=== PATIENT | male | born 1995 | race Caucasian/White ===

== ENCOUNTER 2023-03-05 07:34 | Outpatient (OUT) | payer MEDICAID, SELFPAY ==
[2023-03-05 08:12] LABS: Basophils Percent Auto 0.2 % (0.2-2.0); Eosinophils Absolute Auto 0.1 10^3/uL (0.0-0.7); Eosinophils Percent Auto 1.3 % (0.9-7.0); Hematocrit 44.6 % (42.0-54.0); Hemoglobin 14.9 g/dL (14.0-18.0); Immature Granulocytes Abs Auto 0.01 10^3/uL (0.00-0.03); Immature Granulocytes Pct Auto 0.2 % (0.0-0.5); Lymphocytes Absolute Auto 2.1 10^3/uL (1.2-3.8); Lymphocytes Percent Auto 42.7 % (20.5-60.0); Mean Corpuscular HGB Conc 33.4 g/dL (29.9-35.2); Mean Corpuscular Hemoglobin 29.5 pg (25.9-34.0); Mean Corpuscular Volume 88.3 fL (80.0-94.0); Mean Platelet Volume 9.9 fL (9.5-13.5); Monocytes Absolute Auto 0.6 10^3/uL (0.3-0.8); Monocytes Percent Auto 12.7 % (1.7-12.0); Neutrophils Absolute Auto 2.1 10^3/uL (1.4-6.5); Neutrophils Percent Auto 42.9 % (43.0-75.0); Platelet Count 198 10^3/uL (150-450); Red Blood Count 5.05 10^6/uL (4.70-6.10); Red Cell Distribution Width 13.2 % (11.0-15.0); White Blood Count 4.8 10^3/uL (4.0-11.0)
[2023-03-05 08:41] LABS: Alanine Aminotransferase 25 U/L (16-63); Albumin Level 3.9 g/dL (3.4-5.0); Alkaline Phosphatase 66 U/L (46-116); Anion Gap 7.9; Aspartate Amino Transferase 21 U/L (15-37); BUN Creatinine Ratio 9.5; Bilirubin Total 0.4 mg/dL (0.2-1.0); Calcium 9.3 mg/dL (8.5-10.1); Carbon Dioxide 32.1 mmol/L (21.0-32.0); Chloride 95 mmol/L (98-107); Estimated GFR (African America >60 (>=60); Estimated GFR (Non-African Ame >60 (>=60); Free T3 2.22 pg/mL (2.18-3.98); Globulin 3.9 g/dL; Glucose 93 mg/dL (74-106); Sodium 130 mmol/L (136-145); Thyroid Stimulating Hormone 2.056 uIU/mL (0.358-3.740); Total Protein 7.8 g/dL (6.4-8.2)
[2023-03-05 08:52] LABS: Free T4 0.79 ng/dL (0.76-1.46)
== END 2023-03-05 07:35 | disposition home or self-care (01) ==
LOC: LAB 07:38
PROVIDERS: PCP Family Medicine; Visit Provider Family Medicine
DX: Z79.899 Other long term (current) drug therapy (principal)
CPT/HCPCS: 36415; 80053; 84439; 84443; 84481; 85025

== ENCOUNTER 2024-02-05 06:30 | Outpatient (OUT) | payer MEDICAID, SELFPAY ==
[2024-02-05 06:54] LABS: Basophils Percent Auto 0.2 % (0.2-2.0); Eosinophils Percent Auto 0.8 % (0.9-7.0); Hemoglobin 15.5 g/dL (14.0-18.0); Immature Granulocytes Abs Auto 0.01 10^3/uL (0.00-0.03); Immature Granulocytes Pct Auto 0.2 % (0.0-0.5); Lymphocytes Percent Auto 38.6 % (20.5-60.0); Mean Corpuscular HGB Conc 32.3 g/dL (29.9-35.2); Mean Corpuscular Hemoglobin 29.3 pg (25.9-34.0); Mean Corpuscular Volume 90.7 fL (80.0-94.0); Mean Platelet Volume 10.8 fL (9.5-13.5); Monocytes Absolute Auto 0.5 10^3/uL (0.3-0.8); Monocytes Percent Auto 10.2 % (1.7-12.0); Neutrophils Absolute Auto 2.6 10^3/uL (1.4-6.5); Platelet Count 184 10^3/uL (150-450); Red Blood Count 5.29 10^6/uL (4.70-6.10); Red Cell Distribution Width 12.9 % (11.0-15.0); White Blood Count 5.2 10^3/uL (4.0-11.0)
[2024-02-05 07:39] LABS: Alanine Aminotransferase 32 U/L (16-63); Albumin Globulin Ratio 0.9; Albumin Level 3.8 g/dL (3.4-5.0); Alkaline Phosphatase 76 U/L (46-116); Aspartate Amino Transferase 36 U/L (15-37); Bilirubin Total 0.6 mg/dL (0.2-1.0); Calcium 9.5 mg/dL (8.5-10.1); Chloride 98 mmol/L (98-107); Estimated GFR (African America >60 (>=60); Estimated GFR (Non-African Ame >60 (>=60); Globulin 4.4 g/dL; Glucose 90 mg/dL (74-106); Sodium 134 mmol/L (136-145); Total Protein 8.2 g/dL (6.4-8.2)
== END 2024-02-05 06:31 | disposition home or self-care (01) ==
LOC: LAB 06:30
PROVIDERS: PCP Family Medicine; Visit Provider Family Medicine
DX: Z79.899 Other long term (current) drug therapy (principal)
CPT/HCPCS: 36415; 80053; 85025

== ENCOUNTER 2024-12-07 18:00 | Emergency (ER) | payer MEDICAID, SELFPAY ==
[2024-12-07 18:05] VITALS: BP 150/102; PULSE 88; TEMP 37; O2SAT 100; BMI 27.4
[2024-12-07 18:36] VITALS: BP 132/76; PULSE 76; O2SAT 95
--- NOTE | 2024-12-07 18:37 | ED_ITS ---
HPI HPI - General Adult General Chief complaint: Upper Respiratory Infection Stated complaint: CHOKED WHILE EATING DINNER Time Seen by Provider: 12/07/24 18:08 Source: EMR Mode of arrival: walk-in Limitations: language barrier History of Present Illness HPI narrative: 29-year-old male was brought to the emergency room for evaluation with caregiver. Patient subsides at the [facility]. patient is mostly nonverbal but will give short one answer responses to caregivers. Squad was called after he had a choking episode and Heimlich maneuver was performed 3 times. Patient did have large emesis and was able to expel the food. Caregivers were concerned because patient had stridorous respirations initially when the choking episode was occurring. Patient refused to get in the ambulance so caregivers brought him here by private car. Patient's vital signs are stable he is no longer choking when he arrives. Upon arrival no distress. No wheezing. Related Data Home Medications ?Medication ?Instructions ?Recorded ?Confirmed atomoxetine 40 mg capsule 40 mg PO BID 12/07/24 bacitracin zinc 500 unit/gram 1 applic topical BID 11/2812/07/24 topical ointment baclofen 10 mg tablet 10 mg PO QID 12/07/24 cetirizine 10 mg tablet 10 mg PO DAILY 12/07/2411/28 clonidine HCl 0.1 mg tablet 0.1 mg PO BID 12/07/2411/28 furosemide 20 mg tablet 20 mg PO DAILY 12/07/2411/28 levetiracetam 500 mg tablet 500 mg PO TID 12/07/2411/28 lisdexamfetamine 70 mg capsule 70 mg PO DAILY 12/07/24 12/07/24 (Vyvanse) trazodone 50 mg tablet 25 mg PO TID 12/07/24 trihexyphenidyl 5 mg tablet 5 mg PO TID 12/07/2412/07 Allergies Allergy/AdvReac Type Severity Reaction Status Date / Time No Known Drug Allergies Allergy Verified 12/07/24 18:05 Review of Systems ROS Status of ROS 10 or more systems reviewed and unremark able except as noted in history and below [facility] Medical History (Updated 12/07/24 @ 18:37 by Jessica Carias) Cervical dystonia ?G24.3 - Spasmodic torticollis (ICD-10) Hyperopia with astigmatism ?H52.00 - Hypermetropia, unspecified eye (ICD-10) ?H52.209 - Unspecified astigmatism, unspecified eye (ICD-10) Venous insufficiency ?I87.2 - Venous insufficiency (chronic) (peripheral) (ICD-10) Seasonal allergies ?J30.2 - Other seasonal allergic rhinitis (ICD-10) Insomnia ?G47.00 - Insomnia, unspecified (ICD-10) Dysphagia ?R13.10 - Dysphagia, unspecified (ICD-10) Scoliosis ?M41.9 - Scoliosis, unspecified (ICD-10) Eczema ?L30.9 - Dermatitis, unspecified (ICD-10) Autism ?F84.0 - Autistic disorder (ICD-10) Onychomycosis ?B35.1 - Tinea unguium (ICD-10) Developmental delay, severe ?R62.50 - Unspecified lack of expected normal physiological development in childhood (ICD-10) Attention deficit hyperactivity disorder ?F90.9 - Attention-deficit hyperactivity disorder, unspecified type (ICD-10) Severe intellectual disability ?F72 - Severe intellectual disabilities (ICD-10) Exam Constitutional Vital Signs, click to edit/add: Last Vital Signs Temp 98.6 F 12/07/24 18:05 Pulse 76 12/07/24 18:36 Resp 20 12/07/24 18:36 BP 132/76 12/07/24 18:36 Pulse Ox 95 12/07/24 18:36 O2 Del Method Room Air 12/07/24 18:36 Course Vital Signs Vital signs: Vital Signs Temperature 98.6 F 12/07/24 18:05 Pulse Rate 88 12/07/24 18:05 Respiratory Rate 20 12/07/24 18:05 Blood Pressure 150/102 H 12/07/24 18:05 Pulse Oximetry 100 12/07/24 18:05 Oxygen Delivery Method Room Air 12/07/24 18:05 Temperature 98.6 F 12/07/24 18:05 Pulse Rate 76 12/07/24 18:36 Respiratory Rate 20 12/07/24 18:36 Blood Pressure 132/76 12/07/24 18:36 Pulse Oximetry 95 12/07/24 18:36 Oxygen Delivery Method Room Air 12/07/24 18:36 Medical Decision Making [facility] Narrative Medical decision making narrative: 29-year-old male was brought to the emergency room for evaluation with car shreya. Patient subsides at the [facility]. Squad was called after he had a choking episode and Heimlich maneuver was performed 3 times. Patient did have large emesis and was able to expel the food. Caregivers were concerned because patient had stridorous respirations initially when the choking episode was occurring. Patient refused to get in the ambulance so caregivers brought him here by private car. Patient's vital signs are stable he is no longer choking when he arrives. Upon arrival no distress. No wheezing. X-ray was performed. Patient is stable and able to be discharged to home blood pressure vital signs are all within normal limits. Patient is acting appropriate per caregiver smiling. Primary care physician. Reasons return to the emergency room were discussed history of having difficulty swallowing and is on a mechanical diet. He was eating tater tots and chicken per caregiver. He did vomit up all the food he was eating. Differential Diagnosis Differential Diagnosis: choking, aspiration Medical Records Medical records reviewed: Yes I reviewed the patient's medical records Lab Data Lab results reviewed: Yes I reviewed the patient's lab results Discharge Plan Discharge Chief Complaint: Upper Respiratory Infection Clinical Impression: Choking episode occurring during daytime Patient Disposition: Home, Self-Care Time of Disposition Decision: 18:35 Condition: Good Prescriptions / Home Meds: No Action atomoxetine 40 mg capsule 40 mg PO BID bacitracin zinc 500 unit/gram ointment 1 applic TOPICAL BID baclofen 10 mg tablet 10 mg PO QID cetirizine 10 mg tablet 10 mg PO DAILY clonidine HCl 0.1 mg tablet 0.1 mg PO BID trihexyphenidyl 5 mg tablet 5 mg PO TID lisdexamfetamine [Vyvanse] 70 mg capsule 70 mg PO DAILY levetiracetam 500 mg tablet 500 mg PO TID furosemide 20 mg tablet 20 mg PO DAILY trazodone 50 mg tablet 25 mg PO TID Print Language: Eritrean Instructions: Foreign Body Ingestion in Children (ED) Additional Instructions: patient appears well and back to baseline per caregiver, instructions are same for adult and child choking. Referrals: JOSE FLORES DO [Primary Care Provider, Family Practice] - 1 week
== END 2024-12-07 18:43 | disposition home or self-care (01) ==
PROVIDERS: Emergency Provider Emergency Medicine; PCP Family Medicine
DX: T17.928A Food in respiratory tract, part unspecified causing other injury, initial encounter (principal); W44.F3XA Food entering into or through a natural orifice, initial encounter
CPT/HCPCS: 71045; 99283

== ENCOUNTER 2025-01-20 06:52 | Outpatient (OUT) | payer MEDICAID, SELFPAY ==
--- OUTSIDE RECORDS SUMMARY | 2025-01-20 06:54 | XMS_ITS | Encounter Summary ---
Author Organization [facility] Address [address] [place], [place] [address] Care Team Providers Care Mammography Tech Name Role Phone Jossy Stewart MD Primary Care Provider [phone] PcpWendy APRN Primary Care Provider Unavailabl e Source Comments In the event this information is protected by the Federal Confidentiality of Alcohol and Drug AbusePatient Records regulations: The Federal rules restrict any use of the information to criminally investigate or prosecute any alcohol or drug abuse patient.[facility] Encounter Details Date Type Department Care Team (Latest Contact Info) Description 10/26/2003 Prob Sum Review Provider, Cc Social History Tobacco Use Types Packs/Day Years Used Date Smoking Tobacco: Never Assessed Sex and Gender Information Value Date Recorded Sex Assigned at Not on file Legal Sex Male 9:26 AM EST Gender Identity Not on file Sexual Orientation Not on file documented as of this encounter Plan of Treatment Not on file documented as of this encounter Visit Diagnoses Not on filedocumented in this encounter Care Teams Mammography Tech Relationship Specialty Start Date End Date Jossy Stewart MD [address] [id number] PCP - General 06/22/03 11/29/20 PcpWendy APRN PCP - General 11/30/20 07/05/21 documented as of this encounter
--- OUTSIDE RECORDS SUMMARY | 2025-01-20 06:54 | XMS_ITS | Clinical Summary ---
Author Organization [facility] Address [address] [place], [place] [address] Care Team Providers Care Railroad Track Mechanic Name Role Phone Unavailable Primary Care Provider Unavailabl e Allergies No known active allergies Medications cloNIDine 0.2 mg tablet Take 0.2 mg by mouth three times daily. Active divalproex ER 500 mg 24 hr tablet Take 500 mg by mouth three times daily. Active traZODONE 50 mg tablet Take 25 mg by mouth three times daily. Active leveTIRAcetam 500 mg tablet Take 500 mg by mouth three times daily. Active metoprolol tartrate, short acting, 25 mg tablet Take 25 mg by mouth twice daily. Active BACITRACIN ZINC TOPICAL Apply to affected area twice daily. Active lisdexamfetamin e (VYVANSE) 70 mg capsule Take 70 mg by mouth once daily. Active cloNIDine 0.1 mg tablet Take one tab in the morning and 1.5 tabs at noon. 01/06/2013 Active baclofen 10 mg tablet Take 3 tabs 4 times daily 270 tablet 5 01/06/2013 Active Cetirizine 10 mg cap Take one tab daily at bedtime 01/06/2013 Active Selenium Sulfide 2.25 % Sham Shampoo 3 times a week 0 01/06/2013 Active trihexyphenidyl 5 mg tablet 1.5 tab three times daily 180 tablet 3 01/06/2013 Active OLANZapine (ZYPREXA) 5 mg tablet Take 1.5 tablets by mouth daily at bedtime. 01/28/2014 Active aspirin 325 mg tablet Take 325 mg by mouth once daily. Active loratadine (CLARITIN) 10 mg tablet Take 10 mg by mouth once daily. Active sodium chloride (NASAL SPRAY, SODIUM CHLORIDE,) 0.65 % nasal spray Use 1 [place] in the nose as needed. Active Active Problems Problem Noted Date Diagnosed Date Dystonia Overview (12/12/2012): cervical and truncal PDD (pervasive developmental disorder) Dysphagia Scoliosis of thoracic spine ADHD (attention deficit hyperactivity disorder) Social History Tobacco Use Types Packs/Day Years Used Date Smoking Tobacco: Never Smokeless Tobacco: Never Alcohol Use Standard Drinks/Week Comments Not Asked 0 (1 standard drink = 0.6 oz pur e alcohol) Sex and Gender Information Value Date Recorded Sex Assigned at Not on file Legal Sex Male 9:26 AM EST Gender Identity Not on file Sexual Orientation Not on file Last Filed Vital Signs Vital Sign Reading Time Taken Comments Blood Pressure 144/85 04/30/2014 11:17 AM EDT Pulse 64 04/30/2014 11:17 AM EDT Temperature 36.6 C (97.9 F) 03/15/2013 8:45 PM EDT Respiratory Rate 20 03/15/2013 8:45 PM EDT Oxygen Saturation 85% 04/30/2014 11: 17 AM EDT Inhaled Oxygen Concentration - - Weight 77.9 kg (171 lb 11.8 oz) 03/15/2013 2:51 PM EDT Height 172.5 cm (5' 7.91 ) 12/11/2012 1 2:59 PM EDT Body Mass Index - - Plan of Treatment Health Maintenance Due Date Last Done Comments Anxiety Screening 2015 Depression Screening 2015 HIV Screening 2015 Hepatitis C Screening 2015 DTaP,Tdap,Td Vaccine (1 - Tdap) 2016 Hepatitis B Vaccine (1 of 3 - 19+ 3-dose series) 06/23 Covid-19 Vaccine (1 - season) 2024 Influenza Vaccine (Season Ended) 2025 Insurance [address] [place], [place] [id number] [place]ICAID [place]
--- OUTSIDE RECORDS SUMMARY | 2025-01-20 06:54 | XMS_ITS | Patient Health Record ---
Author Organization [facility] [place] Address [address] [place] [address] Care Team Providers Care Origination Specialist Name Role Phone None, Unknown or Primary Care Provider Unavailab le Reason For Referral No Information Medications Medication SIG (Take, Route, Frequency, Duration) Notes Start Date End Date Status Vyvanse 10 MG 1 capsule in the mor radha Orally Once a day for 30 days 04/11/2023 Active Vyvanse 60 MG 1 capsule in the mor radha Orally Once a day for 30 days 04/11/2023 Active Vyvanse 70 MG 1 capsule in the mor radha Orally Once a day for 30 days 08/10/2023 Active Problems Problem Type SNOMED Code ICD Code Onset Dates Problem Status W/U Status Risk Notes Problem [id number] Severe intellectual disabilities (F72) Active confirmed Problem 24146831 Autistic disorde r (F84.0) Active confirmed Problem 782604293 Attention-defici t hyperactivity disorder, unspecified type (F90.9) Active confirmed Problem 85913493 Dysphagia, unspecified (R13.10) Active confirmed Problem 206085266 Attention defici t hyperactivity disorder (ADHD), unspecified ADHD type (F90.9) Active confirmed Problem 217297729 Scoliosis of thoracic spine, unspecified scoliosis type (M41.9) Active confirmed Problem 83630664 Severe intellectual disability (F72) Active confirmed Plan Of Treatment No Information Insurance Providers Payer Name Payer Address Payer Phone Subscriber Number Group Number Insured Name Patient Relationship to Insured Coverage Start Date Coverage End Date MEDICAID [place] ONLY [address] OFFICE [facility] [place] [place] [id number] Heladio Hutchinson Self - patient is the insured 2
--- OUTSIDE RECORDS SUMMARY | 2025-01-20 06:54 | XMS_ITS | Clinical Summary ---
Author Organization [facility] Address [address] [id number] Care Team Providers Care Control Systems Engineer Name Role Phone Unavailable Primary Care Provider Unavailabl e Social History Tobacco Use Types Packs/Day Years Used Date Smoking Tobacco: Never Assessed Sex and Gender Information Value Date Recorded Sex Assigned at Not on file Legal Sex Male 9:31 PM EST Gender Identity Not on file Sexual Orientation Not on file Plan of Treatment Not on file
--- OUTSIDE RECORDS SUMMARY | 2025-01-20 06:55 | XMS_ITS | CCD ---
Author Organization [facility] Care Team Providers Care Seasonal Delivery Driver Name Role Phone Hilda Donya Siddiquidija Unavailable Unavailable Hilda, Donya Diana Unavailable Unavailable Unavailable Primary Care Provider Unavailabl e Unavailable Primary Care Provider Unavailabl e FLORES, DR MAYUR Reid Attending Unavailable YONI, DR RADHA Templeton Consulting Unavailable FLORES, DR MAYUR Reid Primary Care Unavailable FLORES, DR MAYUR Reid Admitting Unavailable FLORES, DR MAYUR Reid Consulting Unavailable REINECK, DR SANDRO Rudd Attending Unavailabl e DAVE WRIGHT Consulting Unavailable REINECK, DR SANDRO Rudd Admitting Unavailabl e FLORES, DR MAYUR Reid Primary Care Unavailable MARGAUX RIVAS Consulting Unavailable FLORES, DR MAYUR Reid Admitting Unavailable FLORES, DR MAYUR Reid Attending Unavailable FLORES, DR MAYUR Reid Consulting Unavailable FLORES, DR MAYUR Reid Primary Care Unavailable FLORESMAYUR Primary Care Physician FLORES PROVIDER, MAYUR Admitting Unavail able FLORES PROVIDER, MAYUR Attending Unavail able FLORES PROVIDER, MAYUR Referring Unavail able Unavailable Primary Care Provider UnavailTonie Philippe Attending Unavailable Tonie Cannon Admitting Unavailable NO FAMILY, PHYSICIAN Primary Care Unavailable GARY LEWIS Attending Unavailable PROVIDER, UNKNOWN Admitting Unavailable PROVIDER, UNKNOWN Admitting Unavailable PROVIDER, UNKNOWN Attending Unavailable GARY LEWIS Admitting Unavailable GARY LEWIS Attending Unavailable Medications Current Medications Medication Drug Class(es) Dates Sig (Normalized) Sig (Original) acetaminophen 325 mg oral tablet (13 sources) Start: 12-30-2021 End: 12-30-2021 acetaminophen (TYLENOL) tablet atomoxetine 40 mg oral capsule (12 sources) Norepinephrine Reuptake Inhibitor take 1 capsule by mouth twice daily atomoxetine (STRATTERA) 40 MG capsule Take 40 mg by mouth 2 times daily. Active bacitracin 0.5 unt/mg topical ointment (12 sources) bacitracin 500 UNIT/GM OINT ointment Indications: nares Apply externally 2 times daily Indications: nares. Active bacitracin 500 U NIT/GM OINT ointment Indications: nares Apply externally 2 times daily Indications: nares. 0 Active baclofen 10 mg oral tablet (12 sources) gamma-Aminobutyric Acid-ergic Agonist take 1 tablet by mouth four times daily baclofen (LIORESAL) 10 MG tablet Take 10 mg by mouth 4 times daily. Active calcium chloride 0.0014 meq/ml / potassium chloride 0.004 meq/ml / sodium chloride 0.103 meq/ml / sodium lactate 0.028 meq/ml injectable solution (1 source) Start: 2021 lactated ringers iv infusion cetirizine hydrochloride 10 mg oral tablet (12 sources) Histamine-1 Receptor Antagonist take 1 tablet by mouth once daily cetirizine (ZYRTEC) 10 MG tablet Take 10 mg by mouth daily. Active chlorhexidine gluconate 1.2 mg/ml mouthwash (3 sources) Start: 2023 take 15 mL by mouth twice daily chlorhexidine (Peridex) 0.12 % oral solution Take 15 mL by mouth 2 times daily. 473 mL 05/19/2024 Active cloNIDine hydrochloride 0.2 mg oral tablet (12 sources) Central alpha-2 Adrenergic Agonist take 1 tablet by mouth three times daily clonidine (CATAPRES) 0.2 MG tablet Take 0.2 mg by mouth 3 times daily. Active desonide 0.5 mg/ml topical cream (12 sources) Corticosteroid desonide (DESOWE N) 0.05 % cream Apply topically 2 times daily. Apply thin layer to affected area. Active 1 ml HYDROmorphone hydrochloride 0.2 mg/ml prefilled syringe (1 source) Opioid Agonist Start: 2023 End: 2023 0.2 mg, Intravenous Push, PACU EVERY 15 MIN PRN X 4 DOSES, 4 doses, Starting on Sun05/19/24 at 0712, Until Sun05/21/24 at 0711, Moderate Pain (pain score 4,5,6), PACU Now levETIRAcetam 500 mg oral tablet (12 sources) take 1 tablet by mouth three times daily levETIRAcetam (KEPPRA) 500 MG tablet Take 500 mg by mouth 3 times daily. Active lisdexamfetamine dimesylate 70 mg oral capsule (12 sources) Central Nervous System Stimulant take 1 capsule by mouth once daily lisdexamfetamine (VYVANSE) 70 MG capsule Take 70 mg by mouth daily. Active loratadine 10 mg oral tablet (12 sources) take 1 tablet by mouth once daily as needed loratadine (CLARITIN) 10 MG tablet Take 10 mg by mouth daily as needed. Active metoprolol tartrate 100 mg oral tablet (12 sources) beta-Adrenergic Manan take 1 tablet by mouth three times daily metoprolol (LOPRESSOR) 100 MG tablet Take 100 mg by mouth 3 times daily. Active OLANZapine 5 mg oral tablet (12 sources) Atypical Antipsychotic take 0.5 tablet by mouth at bedtime olanzapine (ZYPREXA) 5 MG tablet Take 5 mg by mouth at bedtime. Takes one and a half tabs at hs Active 2 ml ondansetron 2 mg/ml injection (1 source) Serotonin-3 Receptor Antagonist Start: 2021 End: 2021 ondansetron (ZOFRAN) 4 MG/2ML injection oxyCODONE hydrochloride 1 mg/ml oral solution (1 source) Opioid Agonist Start: 2023 End: 2023 take 5 mg by mouth once as needed for pain 5 mg, Oral, PACU ONCE PRN, Starting on Sun05/19/24 at 0712, Until Sun05/19/24 at 1311, Mild Pain (pain score 1,2,3), PACU Now traZODone hydrochloride 50 mg oral tablet (12 sources) Serotonin Reuptake Inhibitor take 0.5 tablet by mouth three times daily trazodone 50 MG tablet Take 50 mg by mouth 3 times daily. Takes half tablet tid Active trihexyphenidyl hydrochloride 5 mg oral tablet (12 sources) Trihexyphenidyl HCl 5 MG TABS Take by mouth 3 times daily. Takes 1 1/2 tab tid Active divalproex sodium 500 mg delayed release oral tablet (12 sources) Mood Stabilizer, Anti-epileptic Agent take 1 tablet by mouth three times daily divalproex (DEPAKOTE) 500 MG enteric coated tablet Take 500 mg by mouth 3 times daily. Active Completed/Discontinued Medications Medication Drug Class(es) Dates Sig (Normalized) Sig (Original) 1 ml naloxone hydrochloride 0.4 mg/ml injection (2 sources) Opioid Antagonist Start: 05-19-2024 0.4 mg, Intravenous Push, PRN, Starting on Sun05/19/24 at 0712, Until Discontinued, Respiratory Rate Less Than 8 for adults and less than 12 for Peds or for suspected overdose, PACU Now Start: 12-30-2021 naloxone (NARC AN) 0.4 MG/ML injection 20 ml sodium chloride 9 mg/m l injection (2 sources) Start: 05-19-2024 3 mL, Intraven ous Push, PRN, Starting on Sun05/19/24 at 0712, Until Discontinued, For medication administration and blood draw, PACU Now Start: 12-30-2021 sodium chlorid e 0.9 % (PF) 0.9 % injection Problems Active Problems Problem Classification Problem Date Documented Date Episodic/Chronic Attention-deficit, conduct, and disruptive behavior disorders (11 sources) Attention deficit hyperactivity disorder; Translations: [Attention-deficit hyperactivity disorder, unspecified type] Onset: 09-04-2019 12-30-2021 Chronic Developmental disorders (12 sources) Severe intellectual disability; Translations: [Severe intellectual disabilities] Onset: 09-04-2019 12-30-2021 Chronic Disorders usually diagnosed in infancy, childhood, or adolescence (11 sources) Autism spectrum disorder; Translations: [Pervasive developmental disorder, unspecified] Onset: 12-30-2021 12-30-2021 Chronic E Codes: Natural/environment (1 source) Exposure to other specified factors, initial encounter; Translations: [EXPOSURE OTHER SPEC FACTORS INITIAL] Onset: 07-19-2022 Episodic Heart valve disorders (1 source) Rheumatic tricuspid insufficiency; Translations: [RHEUMATIC TRICUSPID INSUFFICIENCY] Onset: 04-07-2022 Chronic Other acquired deformities (11 sources) Scoliosis of thoracic spine; Translations: [Scoliosis, unspecified] Onset: 09-04-2019 12-30-2021 Chronic Other hereditary and degenerative nervous system conditions (11 sources) Dystonia; Translations: [Dystonia, unspecified] Onset: 12-30-2021 12-30-2021 Chronic Other injuries and conditions due to external causes (4 sources) Food in respiratory tract, part unspecified causing other injury, initial encounter; Translations: [FOOD RESP TRACT PRT UNS OTH INJ INT] Onset: 07-16-2022 Episodic Other nutritional; endocrine; and metabolic disorders (1 source) Body mass index 30+ - obesity; Translations: [Body mass index (BMI) 31.0-31.9, adult] 05-08-2024 Chronic Other nutritional; endocrine; and metabolic disorders (1 source) Body mass index (BMI) 31.0-31.9, adult; Translations: [Body mass index (BMI) 31.0-31.9, adult] Onset: 05-06-2024 Chronic Other upper respiratory disease (11 sources) Allergic rhinitis; Translations: [Allergic rhinitis, unspecified] Onset: 09-04-2019 12-30-2021 Chronic Unclassified (1 source) Non-bullous impetigo; Translations: [Non-bullous impetigo] Onset: 08-15-2023 Past or Other Problems Problem Classification Problem Date Documented Da te Episodic/Chronic Disorders of teeth and jaw (20 sources) Dental caries; Translations: [Dental caries, unspecified] Onset: 08-16-2017 Resolved: 05-19-2024 08-16-2017 Episodic Other diseases of veins and lymphatics (4 sources) Venous insufficiency (chronic) (peripheral); Translations: [VENOUS INSUFF CHRONIC PERIPHERAL] Onset: 04-06-2022 Episodic Other gastrointestinal disorders (11 sources) Dysphagia; Translations: [Dysphagia, unspecified] Onset: 12-30-2021 12-30-2021 Episodic Residual codes; unclassified (11 sources) Insomnia; Translations: [Insomnia, unspecified] Onset: 09-04-2019 12-30-2021 Episodic Results Test Name Value Interpretation Reference Range Facility Anesthesia Postprocedure Michelle levinetl 05-19-2024 Electronic Repair Troubleshooter Authentication Interface Message Text Anesthesia Postoperative Assessment: Vital Signs (most recent): BP 156/95 Pulse 67 Temp 36.3 ???C (97.4 ???F) (Temporal) Resp 19 Ht 5' 9 (1.753 m) Wt 210 lb (95.3 kg) SpO2 99% BMI 31.01 kg/m??? Anesthesia Post Evaluation Level of consciousness: arousable Pain management: adequate Hydration status: normal PONV:No nausea/vomiting reported Respiratory status: Patient breathing comfortably on room air Cardiovascular status: stable ANESTHESIA NOTABLE EVENTS: No notable events documented. Normal [facility] Anesthesia Transfer Of Jaqueline vasquez 05-19-2024 Electronic Repair Troubleshooter Authentication Interface Message Text Patient taken to PACU. Patient was awake, comfortable, and stable on arrival. Anesthesia Transfer of Care Note Past Medical History: Past Medical History: Diagnosis Date ADHD social science manager Group facility assessment Autism (HCC) with aggression; social science manager Group facility assessment Dysmorphic features social science manager Group facility assessment Dysphagia social science manager Group facility assessment Dystonia Cervical and Truncal; social science manager Group facility assessment Eczema social science manager Group facility assessment Hyperopia of both eyes with astigmatism social science manager Group facility assessment Insomnia social science manager Group facility assessment Onychomycosis social science manager Group facility assessment Pervasive developmental disorder (HCC) social science manager Group facility assessment Scoliosis Thoracic spine, social science manager Group facility assessment Seasonal allergies social science manager Group facility assessment Severe intellectual disability Sleep Apnea/Positive STOP-BANG: No Problem List: Patient Active Problem List: Dental decay [K02.9] ADHD (attention deficit hyperactivity disorder) [F90.9] Allergic rhinitis [J30.9] Dysphagia [R13.10] Dystonia [G24.9] Insomnia [G47.00] Pervasive developmental disorder (HCC) [F84.9] Scoliosis of thoracic spine [M41.9] Severe intellectual disability [F72] Past Surgical History: Review of patient's past surgical history indicates: DENTAL RESTORATIONS (08/20/2017) Procedure: DENTAL RESTORATIONS; Surgeon: Jadyn Kearns DDS; Location: [facility] [place]; Service: Dental EXTRACTION, TOOTH (08/20/2017) Procedure: EXTRACTION, TOOTH; Surgeon: Jadyn Kearns DDS; Location: [facility] [place]; Service: Dental DENTAL RESTORATIONS (01/17/2019) Procedure: DENTAL RESTORATIONS, full mouth x-rays, cleaning; Surgeon: Gary Lewis DDS; Location: [facility]; Service: Dental DENTAL RESTORATIONS (12/30/2021) Procedure: DENTAL RESTORATIONS; Surgeon: Tee De La Rosa DDS; Location: [facility] [place]; Service: Dental Allergies: Patient has no known allergies. Basic Operating Room Facts: Surgeon(s): Gary Lewis DDS Anesthesiologist: Bridget James MD INSULATION HELPER: Todd Bertrand APRN-SARAH Iron Miner: Jacek Arredondo DO DENTAL EXAM UNDER ANESTHESIA, XRAYS AND PROPHY (Bilateral: Mouth) Intraoperative Events: No acute event ASA: 2 EBL: Not documented Urine Not documented Lactated Ringers and NaCl 0.9%: Fluid Totals (Filter: LR and NaCl 0.9% Medications Shown) Medication Calculated Total Lactated Ringers 200 mL / 1 bag Cell Saver: Not documented Blood Volume Values: Blood Products None MTP Blood: MTP PRBC: Not documented MTP FFP: Not documented MTP PLT: Not documented MTP Cryo: Not documented MTP Whole Blood: Not documented Current Vasoactive Medications: {Vasoactive Medications: None Lines, Drains, Airways Peripheral IV Access: 05/19/24 0710 Left Forearm (Active) Airway Insertion Details [REMOVED] Advanced Airway: ETT, Nasal #6.5 (Removed) 05/19/24 0800 Pre-Oxygenation/ Induction: Mask Rapid Sequence Induction?: Mask Ventilation: Easy Blade Type: Mac Blade Size: 3.5 Visualization: Grade 1 Airway Type: ETT, Nasal Airway Size: #6.5 Post Insertion Assessment: Confirmation: Equal bilateral breath sounds, CO2 confirmed # Attempts >1: Special Equipment: Leoncio forceps Present on Admission?: Previously Removed / Not Present: Removal Reason: Not Removed at Discharge: Removed 05/19/24 0840 All non-working IVs have been removed: N/A Laboratory Data: CBC (last 3 years, up to 8 values) No lab values to display. BMP (last 3 years, up to 8 values) No lab values to display. Basic Metabolic Panel No lab values to display. No results found for: INR No result for BNP LFT's (last 3 years, up to 8 values) No lab values to display. Arterial Blood Gases None Hand off Completed: Yes 1. The patient was identified. 2. Pertinent medical history was relayed. 3. A brief discussion was had about any pertinent surgical/ procedural issues. 4. Intraoperative/ anesthetic management issue and concerns were discussed. 5. Plans for the early post-operative period relayed. 6. An opportunity for questions and acknowledgment of understanding of the report was received. DO Maddie Fuentes [employer] [facility] Blood Attestationon 05-19-20 Electronic Repair Troubleshooter Authentication Interface Message Text Blood Attestation: ATTESTATION OF INFORMED CONSENT FOR BLOOD: The transfusion of blood and/or blood components were discussed with the patient and/or legal direct sales representative. The risks, benefits and alternatives were reviewed. Questions regarding blood transfusions were answered. The patient /or the patient's legal direct sales representative agree with the plan for transfusion of blood and/or blood components. Normal [facility] [employer] [facility] Brief Operative Noteon 05-19 Electronic Repair Troubleshooter Authentication Interface Message Text Brief Operative Note PHE OR 3 Shilpa Valle 28 year old male Surgical Contact Serial Number: [id number] Preoperative Diagnosis: ADHD (attention deficit hyperactivity disorder) [F90.9] Allergic rhinitis [J30.9] Dysphagia [R13.10] Dystonia [G24.9] Insomnia [G47.00] Pervasive developmental disorder (HCC) [F84.9] Scoliosis of thoracic spine [M41.9] Severe intellectual disability [F72] Caries [K02.9] Postoperative Diagnosis: ADHD (attention deficit hyperactivity disorder) [F90.9] Allergic rhinitis [J30.9] Dysphagia [R13.10] Dystonia [G24.9] Insomnia [G47.00] Pervasive developmental disorder (HCC) [F84.9] Scoliosis of thoracic spine [M41.9] Severe intellectual disability [F72] Procedures: Full Dental X-Rays [99809] Full Dental Exam [13091] Full Dental Cleaning [50024] Surgeon(s): Surgeon(s): Gary Lewis DDS [place], yoris, DDS Staff: Animal Attendants And Trainers Nurse: Treva Merino Anesthesia: General Anesthesiologist: Bridget James MD Anesthesia Staff: Jacek Arredondo DO Specimen(s): * No specimens in log * Estimated Blood Loss: less than 5 cc Lines/Drains: * No LDAs found * Temporarily Retained Foreign Object: No Findings: Normal Complications: None Status at end of surgery: Stable Activity: weight bearing as tolerated Surgical wound class: No wound. Patient Class: Outpatient Surgery. Is this a patient scheduled as an outpatient that needs to be admitted as an inpatient? No Dr. Lewis was present in the OR for the critical portion of the procedure and procedure sign-out. Signed by Zain Funk DDS 05/19/2024 7:04 AM Normal [facility] [employer] [facility] OP Noteon 05-19-2024 Electronic Repair Troubleshooter Authentication Interface Message Text Operative Note PHE OR 3 Shilpa Harp 28 year old male Surgical Contact Serial Number: [id number] Preoperative Diagnosis: ADHD (attention deficit hyperactivity disorder) [F90.9] Allergic rhinitis [J30.9] Dysphagia [R13.10] Dystonia [G24.9] Insomnia [G47.00] Pervasive developmental disorder (HCC) [F84.9] Scoliosis of thoracic spine [M41.9] Severe intellectual disability [F72] Caries [K02.9] Postoperative Diagnosis: ADHD (attention deficit hyperactivity disorder) [F90.9] Allergic rhinitis [J30.9] Dysphagia [R13.10] Dystonia [G24.9] Insomnia [G47.00] Pervasive developmental disorder (HCC) [F84.9] Scoliosis of thoracic spine [M41.9] Severe intellectual disability [F72] Procedures: Full Dental X-Rays [15228] Full Dental Exam [49355] Full Dental Cleaning [55606] Surgeon: Debbie Vega DDS Holiday Detector Operator Surgeon: Zain Funk DDS Anesthesia: General- Nasal ETT Estimated Blood Loss: 5 cc IV Fluids: 200 cc Urine Output: Not measured. Findings: The patient was brought to the operating room and placed in the supine position on the operating room table. Following satisfactory induction of GA. The patient was intubated with a nasal endotracheal tube. He was then prepped and drapped in the usual sterile fashion for dental procedures. Full mouth series were then taken and an oral examination was completed. A moistened throat pack was then placed. Full mouth prophylaxis was then performed. The radiographs were examined by the attending and the resident and used in conjunction with th oral exam to formulate a treatment plan. The restorative aspect of the treatment plan included the following no restorations done The surgical aspect of the treatment plan included the following extraction. No extractions done. The remaining dentition was then polished with prophy paste. The oral cavity was irrigated and suctioned then the throat pack was removed. Fluoride treament was placed on the remaining dentition. The patient tolerated the procedure well was extubated in the operating room, and taken to the PACU in stable condition. Complications: None Status at end of surgery: Stable Medications: No outpatient medications have been marked as taking for the 05/19/24 encounter (Hospital Encounter). Dictated by: Zain Funk DDS: Dr. Lewis was present for the critical portions of the procedure. Zain Funk DDS 05/19/2024 7:07 AM Normal [facility] [employer] [facility] Progress Noteson 05-19-2024 Electronic Repair Troubleshooter Authentication Interface Message Text ----- Sunday, May 19, 2024 at 8:36:35 AM ----- ----- Provider: [id number] - Gary Amborse DDS -- Clinic: [facility] ----- [place] notes, pt is ready for tx. good OH, needed only cleaning. tooth 17 was partially covered by gum, healthy otherwise with no complaints. give the limited mouth opening, tooth was not extracted today, will be on watch. PHE OR 3 Shilpa Evangelina 28 year old male Surgical Contact Serial Number: [id number] Preoperative Diagnosis: ADHD (attention deficit hyperactivity disorder) [F90.9] Allergic rhinitis [J30.9] Dysphagia [R13.10] Dystonia [G24.9] Insomnia [G47.00] Pervasive developmental disorder (HCC) [F84.9] Scoliosis of thoracic spine [M41.9] Severe intellectual disability [F72] Caries [K02.9] Postoperative Diagnosis: ADHD (attention deficit hyperactivity disorder) [F90.9] Allergic rhinitis [J30.9] Dysphagia [R13.10] Dystonia [G24.9] Insomnia [G47.00] Pervasive developmental disorder (HCC) [F84.9] Scoliosis of thoracic spine [M41.9] Severe intellectual disability [F72] Procedures: Full Dental X-Rays [07202] Full Dental Exam [30154] Full Dental Cleaning [61383] Surgeon: Debbie Vega DDS Holiday Detector Operator Surgeon: Zain Funk DDS Anesthesia: General- Nasal ETT Estimated Blood Loss: 5 cc IV Fluids: 200 cc Urine Output: Not measured. Findings: The patient was brought to the operating room and placed in the supine position on the operating room table. Following satisfactory induction of GA. The patient was intubated with a nasal endotracheal tube. He was then prepped and drapped in the usual sterile fashion for dental procedures. Full mouth series were then taken and an oral examination was completed. A moistened throat pack was then placed. Full mouth prophylaxis was then performed. The radiographs were examined by the attending and the resident and used in conjunction with th oral exam to formulate a treatment plan. The restorative aspect of the treatment plan included the following no restorations done The surgical aspect of the treatment plan included the following extraction. No extractions done. The remaining dentition was then polished with prophy paste. The oral cavity was irrigated and suctioned then the throat pack was removed. Fluoride treament was placed on the remaining dentition. The patient tolerated the procedure well was extubated in the operating room, and taken to the PACU in stable condition. Complications: None Status at end of surgery: Stable Medications: Medications Taking No outpatient medications have been marked as taking for the 05/19/24 encounter (Hospital Encounter). Dictated by: Zain Funk DDS: Dr. Lewis was present for the critical portions of the procedure. Zain Funk DDS 05/19/2024 7:07 AM ----- Signed on Sunday, May 19, 2024 at 8:39:59 AM ----- ----- Provider: Carli Ambrose DDS -- Clinic: [facility] ----- Normal [employer] [facility] Telephone Encounteron 2023 Electronic Repair Troubleshooter Authentication Interface Message Text What is the need: Situation: Prescription Question Background: A nurse form [facility] called asking how long Pt should be using mouthwash. It only stated twice a day but not sure for how long. Recommendation: Please follow up with [facility] at [phone] Thanks! Cristobal Francois URGENT message sent in [employer] on 05/20/24 Normal [facility] [employer] [facility] Anesthesia Preprocedure Eval uationon 05-17-2024 Electronic Repair Troubleshooter Authentication Interface Message Text ASA: 2 NPO status: Greater than 8 hours Past Medical History and Review of Systems Pulmonary (-) non-smoker Dental Comment: Dental Caries Endo Comment: No results found for: A1C , HBA1C Neuro/Psych (+) attention deficit hyperactivity disorder Comment: Hx ADHD Hx pervasive developmental disorder Cardiovascular - negative ROS (+) Surgical risk: low; Cardiac condition: no apparent No previous ECG available GI/Hepatic/Renal Comment: BMP (last 1 year, up to 8 values) No lab values to display. Dysphagia Heme/Other Comment: CBC No lab values to display. Other ROS: DENTAL RESTORATIONS (Bilateral) 2/2 Caries [K02.9] - Thoracic spine scoliosis - Seasonal allergies - 2018 and 219 dental restorations, Ketamine 250 mg IM Physical Exam Airway Mallampati: II TM distance: Adequate Micrognathia: Not present Jaw opening: Adequate Neck flexion: Adequate Dental PE (+) missing teeth Pulmonary - pulmonary exam normal Comment: Chest clear to auscultation bilaterally Cardiovascular - cardiovascular exam normal Comment: RRR with S1S2; no murmurs, gallops, or rubs Neuro - neurological exam normal Comment: Awake, alert, oriented, No motor deficits and sensation grossly intact Plan Anesthesia plan: general; (ETT) Anesthesia risks / alternatives discussed pre-op Questions answered / anesthesia plan accepted Past medical history, surgical history, allergies, and medications reviewed. Pertinent laboratory tests, EKG, imaging, and consults reviewed and I have personally seen and evaluated the patient, repeating finn portions of the history and physical examination. Attestation: MHPATFORM Normal [facility] [facility] [facility] Telephone Encounteron 2023 Electronic Repair Troubleshooter Authentication Interface Message Text Anesthesia consent obtained and scanned into [employer]. Scheduled for surgery 05/19/2024. Normal [facility] [facility] Patient Instructionson 05-06 Electronic Repair Troubleshooter Authentication Interface Message Text On the morning of your surgery, please take only the following medications, with a small sip of water: trazodone 50 MG tablet Trihexyphenidyl HCl 5 MG TABS acetaminophen (TYLENOL) 325 mg tablet loratadine (CLARITIN) 10 MG tablet clonidine (CATAPRES) 0.2 MG tablet divalproex (DEPAKOTE) 500 MG enteric coated tablet levETIRAcetam (KEPPRA) 500 MG tablet metoprolol (LOPRESSOR) 100 MG tablet baclofen (LIORESAL) 10 MG tablet cetirizine (ZYRTEC) 10 MG tablet Please hold Strattera the morning of surgery. Please hold Vyvanse the morning of surgery. Do not take any Aspirin 7 days before surgery. Do not take any Ibuprofen, Aleve, Advil, or Motrin,Meloxicam,Naprosy n,Toradaol or any other NSAIDS 3 days before surgery. May take over the counter Acetaminophen (Tylenol) as needed for pain. Please hold all Vitamin E, Hutchinson 3, fish oil and herbal supplements for 1 week prior to surgery. Please use this CHECKLIST to prepare for your surgery/procedure: Assume that any lab or testing done during your Pre-admission testing appointment is within normal limits unless otherwise contacted. Expect a call from [facility] one business day prior to surgery for surgery arrival time and location. Please plan to restart your medications the day after surgery unless otherwise explicitly instructed. Please contact your surgeon's/proceduralist' s office for any surgical or recovery types of questions. CANCELLING YOUR SURGERY/PROCEDURE: If you get a cold, are not feeling well, or become , please call your surgeon's office as soon as possible. Refer to your Preparing for Your Surgery/Procedure booklet or [email or web address] if you have questions. Contact the Pre-Admission Testing department at [phone] or your surgeon's office with any questions that are not answered. Urine testing: Patients whose assigned sex at was female, and are starting puberty or beyond, will be urine tested for per hospital policy. Eating and drinking before surgery: Adult Patients: No food or drink for 8 hours prior to surgery check in time. Plain water is allowed up to 2 hours prior to your surgery arrival time. A sip of water with approved morning medications is acceptable. Enhanced Recovery After Surgery (ERAS), bariatric, and endoscopy/colonoscopy patients should follow their surgeon's/proceduralist' s instructions for clear fluids prior to surgery. Pediatric Patients (under the age of 1212 years old): Patients are not to have solid food for 8 hours prior to coming for surgery. Patients can have infant formula or non-human milk (skim, 2%, whole, nut-milks, soy, etc.) 6 hours prior to coming for surgery. Patients can have breast milk up to 4 hours prior to coming for surgery. Patients can have clear liquids (water, flavored renee, Pedialyte) up to 2 hours prior to coming for surgery. ON THE DAY OF SURGERY: DO bring your ID, insurance card, medication list, and a small amount of bartholomew for filling prescriptions and any medical co-pays. Do NOT wear any jewelry, (including rings, earrings, or mouth, tongue, or body piercings). Metal jewelry could cause constriction, amputation, or morrow. Loose or bulky things in your mouth can be unsafe and result in breathing problems. DO bring glasses if you wear contacts and other assistance items such as oxygen, inhaler, cane, walker, etc. Do NOT bring valuables, credit cards, or large amounts of bartholomew. Do NOT wear lotion or strong-smelling fragrance (perfume, cologne, cream or lotion). ARRANGE FOR A RIDE: If you are scheduled to go home the same day of surgery, a responsible adult MUST drive or accompany you home in a car, cab, shared ride service, or Metro-van. You will not be allowed to drive yourself home or travel home alone. Your surgery may be cancelled if you do not have a ride. A responsible adult must stay with you after surgery. Please call [facility] Social Work if you need transportation assistance or have concerns about going home [phone]. PEDIATRIC or ADOLESCENTS: Parents or a legal guardian must remain at the hospital during surgery. You will need to make childcare arrangements for your other small children to remain at home or bring an adult with you who can supervise them in the waiting area while you are with your child. Please bring legal guardianship papers with you if applicable. Patients who whose assigned sex at was female, and are starting puberty, will be tested for per hospital policy. SLEEP APNEA PATIENTS: Bring your sleep apnea machine and mask. PLEASE BE ON TIME. A late arrival may result in the cancellation/ delay of your surgery. Thank you for choosing [facility] [facility] it is our pleasure to care for you. Post-op Nausea and Vomiting: A risk of anesthesia is nausea and/or vomiting (PONV). Certain patients are at higher risk than others. Talk to your an (more content not included)... Normal [facility] Progress Noteson 04-14-2024 Electronic Repair Troubleshooter Authentication Interface Message Text Parent/guardian/patient was contacted for PSE AND OR scheduled -- confirmed information with mom, also informed mom importance of receiving PSE call -- if not received surgery will be canceled ----- Sunday, April 14, 2024 at 9:43:40 AM ----- ----- Provider: Misti Mcnamara-Plastics Plater -- Clinic: [place] ----- Normal [facility] [facility] Superficial Wound Cultureon 08-15-2023 Superficial Wound Culture POST NECK PER SWAB BUT ORDER STATES MID POSTERIOR NECK, FACE, LEFT EAR, LIP, AND SCALP ORGANISM: Methicillin Resis Staph Aureus (O:MRSA) Quantity of Growth Heavy Growth ORGANISM: Streptococcus pyogenes grp A (O:STRPYO) Quantity of Growth Heavy Growth Aerobic CELIA Charge (PCMIC38) - SUSCEPTIBILITY ORGANISM: O:MRSA ANTIBIOTIC INTERPRETATION CELIA Azithromycin R >4 Ceftaroline S <0.5 Ciprofloxacin S <1 Clindamycin S 0.5 Daptomycin S 1 Linezolid S 4 Oxacillin R >2 Penicillin R >2 Tetracycline S <4 Trimethoprim/Sulfamethox azole S <0.5 Vancomycin S 2 S = SUSCEPTIBLE I = INTERMEDIATE R = RESISTANT BLANK = DATA NOT AVAILABLE, OR DRUG NOT ADVISABLE OR TESTED R* = RESISTANCE DUE TO EXTENDED SPECTRUM BETA-LACTAMASES ESBL = EXTENDED SPECTRUM BETA-LACTAMASE TFG = THYMIDINE-DEPENDENT STRAIN JOHN PAUL = BETA-LACTAMASE POSITIVE IB = INDUCIBLE BETA-LACTAMASE. APPEARS IN PLACE OF 'S' WITH SPECIES KNOWN TO POSSESS INDUCIBLE BETA-LACTAMASES. POTENTIALLY THEY MAY BECOME RESISTANT TO ALL B-LACTAM DRUGS. PERFORMED BY: [place] [address] PATHOLOGIST LOADER DEMOLDER DONTE CHAIREZ M.D. [facility] Comment on above: Performed By: #### C USUP #### [address] Coding Summary.on 09-24-2022 Coding Summary. CD:[id number] Gh0b Ww+PGhlYWQ+UA2EMAXtK04ew KOboF8UF9wVPK4FLNPWPJLXG Y6SAO5wbUL0MSlyN0VsgsAt BcyuuUZwSI18OZa6XFN9eVhh HNbgeJ4nfRFtJ9z6UqBzRE86 lQ74BTtqUXFxBpD2UgKrohcv bWFy H2pvJcMxeEIaLrb+PHRhYmxl IHdpZHRoPScxMDAlJyBzdHls RE1fNr2fSTOtDAVuoXcqcNKh OiBj n8mfMLNyOOpyBF1dxKgrB3Sk pWP1NOMya6a1Hn56oPG+PHRk RPG9bBrdMTmab574RsScv5ir IDM3 mKTaSOvcKAE1J92yb6J2GRXi XUNlDFF4eDD4pO8hvIzdvhwj C3YoaRSzAyY5PDY9rHOvdR8p bGln ttibjK8rUha+Z63QPV8IVZPV WN7XPzr9H9BnBqzvjLI+PC90 GLNeGA14dOWpgFXxv1yalEe2 JzEw GGDnQUK6aQrtXRskn0MwONOs R42dpMOid5X9WEFvnBrvaOGf VlOcwSX3lO6cEKwnwiyud4dv dzsn Efzgy8jeds32uT06N12wBPdd NOEmSKX9PHJjXUFsbPdceo1n gS8qNq7+PLqjx0vkj2fpjLq3 IjIw CIQbqoRbhMniSQY4e4RmPb31 M6HvgPfxm8FyPmz4bm85eJCz b9M2nYN3ZWwnPGUdcB5pJVzt ZnQ6 XMTiPkLezS21uEOaTLgdQg4g jSdfhBbzOI1jJZMgzcxjLXRs vH3bQNUfqQHvrMwyTI7tOHCl bjtm h320GfRiWMW7MBDlsREuW7Kk tT4mOqOoNGTcXFXaN4HdfGUr JUstQ747NPomReS9XNBzzpLn Y2Fs YKOxgAgmNvQ5g3C3Ug5Mu9Ze kghjDDG5BEqpIRYkZmH1HcPe WxT2D8YbIkp1PVDolLrwAE8b J3Bh DJCefhhsbetvoTO9EVVbYBDi jQ34wYMnLVlkMv8vi6E6d166 HAHbHFDfcT71Tp4muQhgXGCc dCBU sB6zlfyaf6lbdmqpFnWgAQOc MFm3BJw4OFQwmUprIkFmDYQ5 WrW0OOE1hBSmbO7ziFxjppcm dG9w Oyc+A42rcK1tDFY9DCF6njco BGBlidObOQ88EB98U1XjAkqx dGFibGU+IOShoqPriOcvLC5o YmFj k2bzf1TqFOuqW4NsYMMfXTsb Xar5ZKHtRNN7jHB4yA9iOGYh ZJubr1P5nSL7J6XeatAqyl3f b2xs EVIzZQurY47wlGPtp6Q2OQYd gSC8NXOdgPzvQdKnyS85Bia+ UANmvNwbi3TkCfsti8jpx1vt dGg9 DeWqQXWcgdNuhZyuDCC2y8Pj Ml21A00mQHnsWSHcHQWoJTEm FZSvmIljub3uwS9lEg8+PGNv bCB3 yJO0sK3nRCWoLtC0IPxoT809 CrWpxRWgUpdkt7pjy1jioPe7 GiOkUNQhpxRzsDreWUV6b4Ci Lz48 I95jIEthHLTjVBKsZAFlYCCw dVvuoi2gjD1gZb8+SD6hc9cc fr33vG80mPA+IDOeNUI4xSch PSdw CZGynH4jEUciTkN6OVCmLvSs xW92hEHbXMtbYj5vpNhngWuo YT5xEFRgosntm659IpKza6dd IDEw oQBqQNekUNR9C40og7G9DRAu WRXyRGF2aFZ7nV9kdLcgotjj bGVmdDsgdmVydGljYWwtYWxp Z246 IHRvcDsnPlBhdGllbnQgTmFt OKg1G9BkPbg5AIYmkQmvOU7f uEOuGTfgWt0cnMojtYcvLH9q NTBp mlnpx010QjGfx0mlUHGhmFGt LVpqCZG9J77rd2L4GLEoCLUp WAG8vZM2tM7qsAujxvykpNQp dDsg mrUpzCpmXAtcICkvY010HXCf eWwqFbHchqGoPRJukLF8XT41 TA39lRDll1Z7uOT2G5KfFAVb bmct wbhwyWE8FBRkDSLrqK03Ef4f hKmqGz7mKKPlHZJ1BEBmrTLt X6SmrQ4fQxBxWADmHMKiP5Ug eHQt YIhqC019JGypLvL1YLJphhYl Z7OpUEZmuVvcYrU7c6D4Df3Z T3L4SU88HT69sMLrb3D2oPF1 J3Bh NNBdmxirojrpaJF9CIDjVGYo tR05Kc9oaWwwFs5cRDGvSXQ6 CPYatQOnA4OvsE6vNrLkAQQs MDAw L8RpkUScPQhmQ969GJbvLaX3 LHFfhaKhZ8TxMTYprRviGeR5 p9C7Cd5ALLj5SS56SA06iAEg c3R5 aJN9X9ArBMFdisnsgsfrkYE8 JTSpWEIfrA63Wc1enWhsOd5b FUBtASY8LLRtaNWiY1MryR7u OiAj QLCfCDKyA4PpjDDnKSuhG076 RRyrJqZ9REVjnmTsU8KcFCDk dWgrMvU5w8Q0Ei8VHPLsTP36 IFR5 vHL6DX38VQ72L4HhOskwqLGo bGU+PHRhYmxlIHdpZHRoPScx GRZrLpQjeJgpIL7bYx3oHKIo LWNv fHupwTQdXcVpl6hzNHDcCZyn TS1pdTcvZ9CqbOA8GZVoq1m8 Sm41Z01jF2SdaKS+PGNvbCB3 aWR0 sW3iEqAxSgU6OEliA522KnNc uSOdJcnsh0etd7qmyYm1QxR6 HDCkthVjvCrcTIG2a3VbAx99 Y29s IHdpZHRoPSIxNSUiIHZhbGln ws2ziE2aHd3+FKWwwVY5xIK8 fF3pRtSeNaI8VNhiO873ByOn cCIv Lmrzu9ped2qheBe0TnLqEVOb gpYysXugTAO4r3EaLn06D2Os bTsfk7FuIwx8ik32zNXlx1J1 bGU9 A7TnDOKprsuzmGLyiAtkVQ1c DQLpdbsbNCHvvW4uOXZdR7p2 BrJsTiS5FSooV3LzgyE4OCRc cHQg LZenPRF7K95ne6K6EQAqYYRk LKY1wLR7dG8avTmlrqwvjWEk sSloiyCvxVwqZHjsFSriR328 IHRv oOdzVXRjnA5bLUMdeIPvzJmn HP4aQPLzteidPsjQYnSjXD7J UksgUjwvdGQ+SUAuXCM6vMmm PSdw ZZQgrF6sSZCqI9g7AtByUhN7 GWdeD1AoKDCxzhpmIi37gI5q NtLrKmY3KIrsB4FyaeW1PJYu cHQg DPjnYDT4J65gv8H8IWUiUJCk TXG3tHO6nM7chXjichgmnLUo oXhghvMpdYrbFBigZDncN739 IHRv kArbTfKkMcA6NxZ7AFt9A0Tj Cqt2SQGtyCnqBR6cwSCeEEry Gb8jqNjbfUnkXG6lAQYeclya YWRk eX2qDYLdrAWonPaxKL7dPIOg fsbid283TtGzNWE4DZQsoNVe E5XznM1dBcUsBCTkWAIwP9Pk eHQt JKtpZ547UJxfPbJ8MJQvbiMa R3KcARXpnOtlPtB0g7R6Wq2r NSBZZWFyczwvdGQ+PHRkIHN0 eWxl BYgnJDFknD0nLMRzJ1e6EuVf CgX1OXgpF0McMAVxjnmqOz11 eU1pBbXpAqC4KPiiQ5CbxvJ7 IDEw iZOjLKktLYZ2Q65lw5Z3APRz JTErALK0aLB8aX4nzGndkmzy bGVmdDsgdmVydGljYWwtYWxp Z246 IYQbvNxqGt7doLH3Q8LkBnl7 VITwfOdzVO3slMInIQkzDp8s gZqfuQdyIO6bDBFtjtccBBCl aW5n BHFfkXJxxCkhVL9mVQHvgjdz t665RnEnXCD5YILgxMZnS5Em sF9rGdZlPZLrANGlC2IymHAq YWxp X825UWtzQuY8TTXcueFyH6Yp YELitWthLhD2d5L6Uh8BdIFw UPKxZB24ZG92HC36X9EzOhoq dGFi bGU+PHRhYmxlIHdpZHRoPScx AOEbZkIfjKhwSK4iRh7mJVVc BCZtcPthaZTtRnLvm3bpHZSc ZTsg TQ8ikAlhQ1DmnSM4WDYpx3g3 Wk48F68bC6HgmTN+PGNvbCB3 qEN4sE3jAaGiTjZ5TDfuP949 InRv mRWyImyak7zcj8jogIw5OrHo HCGiqhJbdJjzMLC4f3VnOa54 C58dCJqfQOCgSZKvGDAuVWFw bGln tq5ukB1hHq3+PUAsgSP3rWS0 aV9oAyFpVrH7MVsxU280DgUf oPBeDyskE10mA7CeuLP+PHRy Pjx0 FLKxmOjlTJ1lyDZyESogNt6y KWR2DhQoQjQwJCstE2DmAAMo wqyueugcuKV1OAGxKQFuyZ62 Zm9u nQcwDt1tOVWeOZW8PLXyaVAy P2SpgU4jQgWuXVAdICYzF9Us mWKsBZiqS560UVnoMhS0BNCl cnRp K9HqOFEeaOwjUxY1f2E7Hq1A cMsfeXVoYM5dAqEkVTp2V1Yz Qct9JVMznBjcXU9hmMKyZWei Zy1y fBccyYhwQI0tHKMxqiwql841 BuQby4dlHVGgxVEwWFzeEKV6 G96rp6I7JOPwAHOaWXP6yNY9 dC1h bGlnbjogbGVmdDsgdmVydGlj GLzzDIwlY736BMSnoRskGvVD Psy4X5ZqPud5XGKpgSuvMC0w cGFk SUfvTr1wlZrrrPdbDU5wUXGq iowfa668HsXqo1rqKZJlhYEb HDcwPZC6F82qb3C4TKFoMDRz MDA7 jGX5fJ8acZbxqadyvRLnxAes wiQwqSqkQPdvWUkyB464WPJf oAwhVm7LFht6A5KfSzo0RFQe dHls XW6kxKRyEVaxFs7biPfuaQjl MX0yQJXgqzcgt655QiOgj3de HTYuxQMtIVrzNJF4J35cs0B3 ICMw BSSgDIL1pJF5kF5crUrrqcly bGVmdDsgdmVydGljYWwtYWxp E833XRVqmTinDlUriUVvFcjp dGQ+ FB27at98X3SlEvrvJqm7ULAy KUO6qFI0wH0rINTtEEppk3U7 rZM4D7XmgnGqdq1ep2gcXJQx ZTog Y29s (more content not included)... [facility] Consent for Treatmenton 09-06 Consent for Treatment [id number]: 127 [facility] XR Adult Swallowing Function w/ Videoon 09-20-2022 XR Adult Swallowing Function w/ Video Exam Date/Time: 09/20/2022 09:30 EST Reason for Exam: FREQUENT CHOKING Report IMPRESSION: Modified barium swallow performed by Speech Pathology. Please refer to the report by the Speech Pathologist in the medical record. XR Adult Swallowing Function w/ Video HISTORY: FREQUENT CHOKING TECHNIQUE: Fluoroscopy was provided for an oropharyngeal phase swallowing examination performed by Speech Pathology with the patient swallowing multiple consistencies. Fluoroscopic dose of 10.1 mGy. DAP: 236.57 uGy*m2 Comparison: None. RESULT: Oral phase: Unremarkable mastication and bolus formation with transfer to the oropharynx. Pharyngeal phase: Good pharyngeal elevation and epiglottic excursion without aspiration. Esophageal phase: No diverticulum, stricture, or fistula in the visualized upper esophagus. Residual: Some vallecular and piriform sinus residue, which mostly cleared with further swallowing. Ordering Provider: MAYUR FLORES FINAL REPORT Dictated: 09/20/2022 12:10 pm Mayur Barber MD. Signed (Electronic Signature): 09/20/2022 12:10 pm Signed by: Mayur Barber MD Transcribed by: DP Technologist: REGINO Technical Comments Radiation Dose: mariam Siddiqui in mGy = 10.1 Normal [facility] Physician Orderon 09-08-2022 Physician Order [id number]: 127 Normal [facility] XR CHEST 1 Von 07-16-2022 XR CHEST 1 V EXAM: XR CHEST 1 V COMPARISON: None available. CLINICAL INDICATION: Cough, aspirated eating dinner. FINDINGS: Evaluation limited by flexed chin and incomplete inspiration. Cardiac silhouette likely artifactually magnified by AP technique and low lung volumes. Mediastinal contours within normal limits. No focal consolidation. No pleural effusion. No pneumothorax. No evidence of acute osseous abnormality. Visualized upper abdomen grossly unremarkable. IMPRESSION: 1. Incomplete inspiration. 2. No acute findings. Electronically authenticated by: MARGAUX RIVAS Date: 2022-07-16 18:55 Normal [facility] ECHOCARDIO M/2D COMPLETEon 0 04-06-2022 ECHOCARDIO M/2D COMPLETE Patient: SHILPA VALLE Exam Date: 04/06/2022 : 1995 Gender:M Ordering : DR MAYUR FLORES D.O. Admission #: [id number] Family : Order #: [id number] CLICK HERE TO VIEW EXAM ECHOCARDIOGRAM REPORT PROCEDURE: CARDIO PULMONARY ECHOCARDIO M/2D COMP INDICATIONS: Bilateral lower extremity edema COMPARISON: None. DESCRIPTION: COMPLETE ECHOCARDIOGRAM Real-time transthoracic echocardiography with 2D, M-mode, spectral and color flow Doppler performed. QUALITY: Technical quality was good. LEFT VENTRICLE: Global left ventricular systolic function is normal. LV EF: Estimated left ventricular ejection fraction is 55 % DIASTOLIC: Normal diastolic function. ATRIAL SEPTUM: Appears intact. LEFT ATRIUM: Normal chamber size. RIGHT ATRIUM: Normal chamber size. RIGHT VENTRICLE: Normal chamber size. Normal right ventricular systolic function. TRICUSPID VALVE: Normal mobility and thickness. No stenosis with mild regurgitation. No evidence of pulmonary hypertension. RVSP is 32 mmHg MITRAL VALVE: Normal mobility and thickness. No mitral valve prolapse. No evidence of mitral valve stenosis. No mitral regurgitation. AORTIC VALVE: Normal trileaflet appearance. No visible sclerosis. Normal leaflet mobility. No evidence of aortic valve stenosis. No aortic regurgitation. AORTIC ROOT: Normal diameter and appearance. PULMONIC VALVE: Normal thickness and mobility. No stenosis. Trivial regurgitation. PERICARDIUM: No evidence of pericardial effusion. IVC: Collapses with inspirations. PLEURA: CONCLUSION: 1. Normal ventricular function. LVEF is 55%. 2. Mild tricuspid regurgitation. 3. Normal right-sided pressures. 4. No pericardial effusion. Adult Echocardiography Procedure Report Left Ventricle Left Atrium Mitral Valve Right Ventricle Aorta Aortic Valve Peak Velocity (Antegrade Flow): 1.12 m/s AoV Area (Peak Cornelius): 1.96 cm2, 1.96 cm2 Tricuspid Valve Peak Velocity (Regurgitant Flow): 2.68 m/s Peak Velocity: 0.42 m/s Pulmonic Valve Mean Gradient: 1.97 mm[Hg] Mean Velocity: 0.66 m/s Peak Velocity: 0.88 m/s Peak Gradient: 3.09 mm[Hg] Right Atrium Dictated by: Darci Roldan M.D. on 04/06/2022 at 21:24 Approved by: Darci Roldan M.D. on 04/06/2022 at 21:27 [facility] VC VENOUS REFLUX YASMIN LMTon 0 04-05-2022 VC VENOUS REFLUX YASMIN LMT Patient: SHILPA VALLE Exam Date: 04/05/2022 : 1995 Gender:M Ordering : DR MAYUR FLORES D.O. Admission #: [id number] Family : Order #: [id number] CLICK HERE TO VIEW EXAM RADIOLOGY REPORT PROCEDURE: VEIN CENTER ULTRASOUND VENOUS REFLUX BILATERAL LIMTED COMPARISON: None. INDICATIONS: Peripheral venous insufficiency I87.2 TECHNIQUE: Duplex imaging of the lower extremity to assess the deep and superficial venous system for the presence of deep or superficial venous incompetence and to document the location and severity of disease. The study includes evaluation of the great saphenous vein (GSV), anterior accessory saphenous vein (AASV) and small saphenous vein (SSV). Patient scanned in reverse Trendelenburg and standing. FINDINGS: RIGHT LOWER EXTREMITY: Saphenofemoral Junction Reflux: Yes 6.1mm 0.4 sec GSV: Diam (mm) Reflux/ Time (sec) Proximal Thigh 5.7 Yes 0.9 Mid Thigh 4.1 Yes 0.5 Distal Thigh 3.7 No Prox Calf 2.1 Yes 0.3 Mid Calf 3.9 No Saphenopopliteal Junction Reflux: 2.2mm No SSV: Proximal Calf 3.0 No Mid Calf 1.8 No AASV: Not present Thrombi: No acute or chronic thrombus. Compressibility: Normal. Flow: Mild deep venous reflux. Preforator: Prox/med lower leg 4.3 mm without reflux. Tech Note: No varicosities visualized. PTVs not visualized. LEFT LOWER EXTREMITY: Saphenofemoral Junction Reflux: Yes 6.5 mm 0.3 sec GSV: Diam (mm) Reflux/Time (sec) Proximal Thigh 5.7 Yes 1.0 Mid Thigh 2.0 Yes 1.0 Distal Thigh 2.9 Yes 0.7 Prox Calf 2.3 Yes 4.1 Mid Calf 2.6 No Saphenopopliteal Junction Relux: 3.3 mm No SSV: Proximal Calf 2.0 No Mid Calf 2.1 No AASV: Not present Proximal Thigh Mid Thigh Distal Thigh Thrombi: No acute or chronic thrombus. Compressibility: Normal. Flow: Deep venous reflux. Real Estate Inspector: Tech Note: No significant varicosities visualized. PTVs not visualized. CONCLUSION: Mild right and pqth-ub-xfyqlnza left great saphenous vein venous insufficiency without dilatation Mild bilateral deep vein reflux, left greater than right Dictated by: Radha Aldridge MD on 04/05/2022 at 11:42 Approved by: Radha Aldridge MD on 04/05/2022 at 11:46 Normal [facility] CT BRAIN W/O CONTRASTon 01-05 CT BRAIN W/O CONTRAST Final ReportAccession No: [id number] Performed: Jan 24 2018 2:22PMExamination: CT BRAIN W/O CONTRASTEXAM TYPE: CT BRAIN W/O CONTRASTEXAM DATE AND TIME: 01/24/2018 2:22 PM.INDICATION: 22 years old Male with headache after trauma.COMPARISON: None.TECHNIQUE: Multiple axial CT images of the head were obtained withoutcontrast.Dose reduction techniques were achieved by using automated exposurecontroland/or adjustment of mA and/or kV according to patient size and/or use ofiterative reconstruction technique.FINDINGS:Ventr icles and sulci are normal in size and configuration. 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 No intracranial hemorrhage. No masseffect or edema. No CT evidence of large territorial infarction.Visualized paranasal sinuses are well aerated. Mastoids are clear. Nodepressedcalvarial fracture. Moderate-sized right parietal scalp hematoma near thevertex measuring 2.8 x 1.1 cm in the axial plane.IMPRESSION:1. No intracranial hemorrhage or mass effect.2. No depressed calvarial fracture.3. Moderate size right parietal scalp hematoma near the vertex.Interpreting Physician: SOCRATES RAMSAY D.O.Trans: [email or web address] : cc: Normal [facility] CT SPINE CERVICAL W/O CONTRA STon 01-24-2018 CT SPINE CERVICAL W/O CONTRAST Final ReportAccession No: [id number] Performed: Jan 24 2018 2:24PMExamination: CT SPINE CERVICAL W/O CONTRASTEXAM TYPE: CT SPINE CERVICAL W/O CONTRASTEXAM DATE AND TIME: 01/24/2018 2:24 PM.INDICATION: 22 years old Male with neck pain after trauma.COMPARISON: None.TECHNIQUE: CT imaging of the cervical spine was obtained without contrast.Dose reduction techniques were achieved by using automated exposurecontroland/or adjustment of mA and/or kV according to patient size and/or use ofiterative reconstruction technique.FINDINGS:There is normal cervical lordosis. No subluxation. Vertebral bodyheights aremaintained. No fracture. Craniocervical junction is normal in appearance.Atlantodental distance is not widened. There is disc space narrowing atC5-C6with anterior marginal osteophyte and endplate degenerative changes. Noprevertebral soft tissue swelling.IMPRESSION:1. No acute fracture or traumatic malalignment.2. Moderate C5-C6 degenerative disc changes.Interpreting Physician: SOCRATES RAMSAY D.O.Trans: [email or web address] : cc: Normal [facility] Vital Signs Date Time Vital Sign Value Performing Clinician Jethro bell 05-19-2024 09:15-0400 Body temperature 97 [degF] Gary Lewis [employer] Work Phone: [facility] 05-19-2024 09:15-0400 Diastolic blood pressure 106 mm[Hg] Garyliliana Lewis [employer] Work Phone: [facility] 05-19-2024 09:15-0400 Heart rate 61 /min Garyliliana Lewis [employer] Work Phone: [facility] 05-19-2024 09:15-0400 Respiratory rate 13 /min Garyliliana Lewis [employer] Work Phone: [facility] 05-19-2024 09:15-0400 SaO2% (BldA) [Mass fraction] 99 % Garyliliana Lewis [employer] Work Phone: [facility] 05-19-2024 09:15-0400 Systolic blood pressure 159 mm[Hg] Gary Lewis [employer] Work Phone: [facility] 05-19-2024 06:53-0400 Body height 175.3 cm Gary Lewis [employer] Work Phone: [facility] 05-19-2024 06:53-0400 Body mass index (BMI) [Ratio] 31.01 kg/m2 Gary Lewis DDS Work Phone: [employer] 05-19-2024 06:53-0400 Body weight 95.25 kg Gary Lewis DDS Work Phone: [employer] 05-06-2024 10:37-0400 Diastolic blood pressure 88 mm[Hg] Maria Del Rosario Dai DOCUMENT COORDIN[employer] Work Phone: [employer] Comment on above: manual repeat; RUE 05-06-2024 10:37-0400 Systolic blood pressure 126 mm[Hg] Maria Del Rosario Dai DOCUMENT COORDINATOR[employer] Work Phone: [employer] Comment on above: manual repeat; E 05-06-2024 10:19-0400 Body height 175.3 cm Maria Del Rosario Dai DOCUMENT COORDINATOR[employer] Work Phone: [employer] 05-06-2024 10:19-0400 Body mass index (BMI) [Ratio] 31.53 kg/m2 Maria Del Rosario Dai DOCUMENT COORDINATOR[employer] Work Phone: [employer] 05-06-2024 10:19-0400 Body temperature 97.9 [degF] Maria Del Rosario Dai DOCUMENT COORDINATOR[employer] Work Phone: [employer] 05-06-2024 10:19-0400 Body weight 96.84 kg Maria Del Rosario Dai DOCUMENT COORDINATOR[employer] Work Phone: [employer] 05-06-2024 10:19-0400 Heart rate 79 /min Maria Del Rosario Dai DOCUMENT COORDINATOR[employer] Work Phone: [employer] 05-06-2024 10:19-0400 Respiratory rate 16 /min Maria Del Rosario Dai DOCUMENT COORDINATOR[employer] Work Phone: [employer] 05-06-2024 10:19-0400 SaO2% (BldA) [Mass fraction] 99 % Maria Del Rosario Dai DOCUMENT COORDINATOR[employer] Work Phone: [facility] 12-30-2021 13:15-0400 Diastolic blood pressure 86 mm[Hg] Tee Santo DDS [facility] 12-30-2021 13:15-0400 Heart rate 80 /min Tee Santo DD S [facility] 12-30-2021 13:15-0400 Respiratory rate 18 /min Tee Santo DD S Work [facility] [facility] 13:15-0400 SaO2% (BldA) [Mass fraction] 96 % [facility]ee Santo DDS [facility] 12-30-2021 13:15-0400 Systolic blood pressure 143 mm[Hg] Tee Santo DDS [facility] 12-30-2021 13:00-0400 Body temperature 97.9 [degF] Tee Santo DD S [facility] 12-30-2021 11:04-0400 Body height 175.3 cm Tee Santo DD S [facility] 12-30-2021 11:04-0400 Body mass index (BMI) [Ratio] 29.68 kg/m2 Tee Santo DDS Work Phone: [facility] 12-30-2021 11:04-0400 Body weight 91.17 kg Tee Santo DD S Work Phone: [facility] Encounters Encounter Date Encounter Type Care Provider Facility Start: 05-19-2024 End: 05-19-2024 Telephone encounter Zainjanelle Moraleslayton Funk MARYS Work Phone: [facility] Comment on above: Prescription Quest[facility] n Start: 05-19-2024 ambulatory GARY ITPTON-LISA [facility] Start: 05-19-2024 End: 05-19-2024 ambulatory GARYLILIANA LEWIS Facility:[facility] Start: 05-19-2024 End: 05-19-2024 Subsequent hospital visit by physician Gary Lewis DDS Work Phone: [facility] Start: 05-19-2024 End: 05-19-2024 Patient encounter procedure Gary Lewis DDS Work Phone: [facility] Start: 05-13-2024 End: 05-13-2024 Telephone encounter Anne Dupree RN [facility] Pre-Admission Testing Comment on above: PAT (Anesthesia cons ent obtained) Start: 05-06-2024 End: 05-06-2024 Patient encounter procedure Maria Del Rosario Dai APRN-HAIR DRYER Work Phone: [facility] Pre-Admission Testing Comment on above: Preoperative testing (Primary Dx); Body mass index (BMI) 31.0-31.9, adult Start: 05-06-2024 End: 05-06-2024 Patient encounter status Maria Del Rosario Dai DOCUMENT COORDINATOR-HAIR DRYER Work Phone: [facility] Work Phone: Start: 05-06-2024 ambulatory UNKNOWN PROVIDER Facili ty:[facility] Start: 05-06-2024 Encounter for other preprocedural examination UNKNOWN PROVIDER [facility] Start: 04-11-2024 End: 04-11-2024 Admission to same day surgery center Zain Funk DDS Work Phone: [facility] Start: 08-15-2023 End: 08-15-2023 ambulatory Tonie Cannon Facility:[facility] Start: 09-29-2022 Letter encounter Cristino dasilva Start: 09-20-2022 End: 09-21-2022 ambulatory MAYUR FLORES PROVIDER Facility:[facility] Start: 09-20-2022 End: 09-20-2022 Patient encounter procedure MAYUR FLORES [facility] Start: 08-17-2022 End: 01-15-2023 Patient encounter procedure Blair Smyth DDS Work Phone: [facility] Start: 07-16-2022 End: 07-16-[address] SANDRO NUR Facility:[facility] Start: 04-06-2022 End: 04-07-[address] MAYUR FLORES Facility:[facility] Start: 04-05-2022 End: 04-06-[address] MAYUR FLORES Facility:[facility] Start: 03-24-2022 Letter encounter Cristino dasilva Start: 12-30-2021 End: 12-30-2021 Subsequent hospital visit by physician Tee Santo DDS Work Phone: [facility] Start: 12-08-2021 Telephone encounter Anne vasquez RN [facility] Pre Surgical Evaluation Comment on above: Pre-surgical Evaluat ion (Pre-op COVID testing not needed ) Start: 01-24-2018 End: 01-24-2018 Emergency department patient visit Donya Stevens Facility:[facility] Plan of Treatment Date Care Activity Detail Author Start: 2047 Shingles (RZV) Vacci ne (1 of 2) Shingles (RZV) Vaccine (1 of 2) [facility] Start: 05-19-2024 End: 05-19-2024 Admission to same day surgery center 05/19/2024 7:40 AM EDT - 05/19/2024 9:24 AM EDT Surgery [facility] [address] [place], [place] [id number] Gary Lewis, DDS [address] [place] [address] DENTAL RESTORATIONS [facility] Comment on above: DENTAL RESTORATIONS Start: 05-19-2024 Subsequent hospital visit by physician [facility] Start: 05-19-2024 End: 05-19-2024 DENTAL RESTORATIONS [facility] Start: 05-19-2024 End: 05-19-2024 Patient encounter procedure 05/19/2024 6:30 AM EDT Procedure Visit [facility] [address] [place] [address] [place] [address] Gary Lewis, DDS [address] [facility] [facility] [place], [place] [id number] [facility] Start: 05-06-2024 Influenza vaccination Influenza Vacc ine (#1) [facility] Start: 04-06-2024 COVID-19 Vaccine ( season) COVID-19 Vaccine ( season) [facility] Start: 04-06-2024 Influenza vaccination Influenza Vacc ine (#1) [facility] Start: 08-17-2022 End: 08-17-2022 Patient encounter procedure 08/17/2022 Procedure Visit Dentistry Reyna Kahn, [facility] [address] [place] [address] [facility] Start: 05-06-2022 Influenza vaccination Influenza Vacc ine (#1) [facility] Start: 12-30-2021 End: 12-30-2021 DENTAL RESTORATIONS DENTAL RESTORATIONS Routine scheduled Caries 12/30/2021 11:28 AM EDT [facility] Start: 12-30-2021 End: 12-30-2021 Admission to same day surgery center 12/30/2021 Surgery Ambulatory Surgery Tee De La Rosa, [address] [place], [place] [id number] DENTAL RESTORATIONS [facility] Comment on above: DENTAL RESTORATIONS Start: 12-30-2021 End: 12-30-2021 DENTAL RESTORATIONS DENTAL RESTORATIONS Routine scheduled Caries 12/30/2021 7:35 AM EDT [facility] Start: 12-30-2021 Subsequent hospital visit by physician 12/30/2021 Hospital Encounter Ambulatory Surgery Tee De La Rosa, [address] [place], [place] [address] [facility] Start: 2016 Hepatitis A (HAV) Vaccine (optional start 19+ years) Hepatitis A (HAV) Vaccine (optional start 19+ years) [facility] Start: 2015 Hepatitis C screening Hepatitis C An tibody [facility] Start: 2015 Tetanus + diphtheria + acellular pertussis vaccine (product) Tdap Booster [facility] Start: 2012 HIV screening HIV Test [facility] Start: 2012 Vaccination for erika n papillomavirus HPV Vaccine (1 - Male 3-dose series) [facility] Start: 2008 Vaccination for erika n papillomavirus Human Papilloma (HPV) Vaccine (1 - Male 2-dose series) [facility] Start: 03-19-1998 Hepatitis B vaccination Hepati tis B (HBV) Vaccine (3 of 3 - 3-dose series) [facility] DENTAL RESTORATIONS DENTAL VICKI RATIONS Routine scheduled Caries [facility] Immunizations Immunization Date Immunization Notes Care Provider [facility] 06-01-2021 influenza, injectabl e, quadrivalent, preservative free Anne Dupree RN [facility] 06-01-2021 influenza virus vacc ine, unspecified formulation [facility] 09-07-2020 Pfizer SARS-COV-2 (C OVID-19) vaccine, age 12+ yrs, mRNA, spike protein, LNP, preservative free, 30 mcg/0.3mL dose (MPN=901) Anne Dupree RN [facility] 08-17-2020 Pfizer SARS-COV-2 (C OVID-19) vaccine, age 12+ yrs, mRNA, spike protein, LNP, preservative free, 30 mcg/0.3mL dose (DTP=764) Anne Dupree RN [facility] 05-12-2020 influenza, injectabl e, quadrivalent, preservative free Anne Dupree [facility] 05-30-2019 influenza, injectabl e, quadrivalent, preservative free Anne Dupree RN [facility] 05-15-2018 influenza, injectabl e, quadrivalent, preservative free Anne Dupree [facility] 05-30-2017 influenza, injectabl e, quadrivalent, contains preservative Anne Dupree RN [facility] 05-10-2016 influenza, injectabl e, quadrivalent, contains preservative Anne Dupree [facility] 05-27-2015 influenza, seasonal, injectable Anne Dupree [facility] 06-11-2014 influenza, seasonal, injectable Anne Dupree [facility] 06-03-2013 influenza, injectabl e, quadrivalent, preservative free Anne Dupree [facility] 05-29-2012 influenza, seasonal, injectable Anne Dupree [facility] 04-19-2011 influenza, seasonal, injectable, preservative free Anne Dupree [facility] 06-01-2010 influenza, seasonal, injectable Anne Dupree [facility] 2009 novel influenza-H1N1 -09, preservative-free, injectable Anne Dupree [facility] 04-27-2009 influenza, seasonal, injectable Anne Dupree [facility] 06-01-2008 influenza, seasonal, injectable Anne Dupree [facility] 05-28-2008 influenza virus vacc ine, whole virus Anneivan Dupree [facility] 05-22-2007 influenza, seasonal, injectable Anne Dupree [facility] 12-20-2006 meningococcal polysa ccharide (groups A, C, Y and W-135) diphtheria toxoid conjugate vaccine (MCV4P) Anneivan Dupree [facility] 12-21-1998 diphtheria, tetanus toxoids and acellular pertussis vaccine, unspecified formulation Anne Dupree [facility] 09-24-1998 haemophilus influenz ae type b vaccine, PRP-D conjugate Anneivan Dupree [facility] 09-24-1998 measles, mumps and r ubella virus vaccine [facility] 06-25-1998 varicella virus vaccine Anne Ofeliakathya alfonzo [facility] 01-22-1998 diphtheria, tetanus toxoids and acellular pertussis vaccine, unspecified formulation Anne Dupree [facility] 01-22-1998 hepatitis B vaccine, pediatric or pediatric/adolescent dosage Anne Dupree [facility] 1997 diphtheria, tetanus toxoids and pertussis vaccine Anne Dupree [facility] 1997 diphtheria, tetanus toxoids and pertussis vaccine Anne Dupree [facility] 1997 hepatitis B vaccine, pediatric or pediatric/adolescent dosage Anneiavn Dupree [facility] Payers Date Payer Category Payer Self-pay 2017 Medicaid [id number] 1997 Unknown [id number] [id number] 1997 Unknown [id number] [id number] [id number] 1997 Unknown [id number] [id number] 1997 Unknown [id number] 2.16. [id number] 1997 Unknown [id number] 2.16. [id number] 1997 Unknown [id number] 2.16. [id number] 1959 Medicaid [id number] Unknown [id number] 2.16.84 [id number] Unknown [id number] 2.16.8 [id number] Social History Date Type Detail Facility Tobacco smoking stat [facility] Tobacco smoking consumption unknown [facility] Start: 1997 Sex Assigned At Not on file [facility] Tobacco smoking status No Smokin g Status Entered [facility] Start: 05-06-2024 Sex Assigned At Male [facility] Start: 05-06-2024 Tobacco smoking stat [facility] Never smoked tobacco [facility] Start: 05-06-2024 Tobacco use and exposure Smokeless tobacco non-user [facility] Start: 05-06-2024 Alcoholic beverage intake Lifetime non-drinker (finding) [facility] Start: 05-06-2024 History of [facility] 12-08-2021 to 05-19-2024 Telephone Encounter - Cristobal Francois - 05/19/2024 1:19 PM EDTTelephone Encounter - Cristobal Francois - 05/19/2024 1:19 PM EDTDischarge InstructionsGary Rubin DDS - 05/19/2024 8:07 AM EDT Note Date & Type Note Facility 05-19-2024 Telephone encounter Note What is the need: Situation: Prescription Question Background: A nurse form [place] called asking how long Pt should be using mouthwash. It only stated twice a day but not sure for how long. Recommendation: Please follow up with Tomas Augustin at [phone] Thanks! Cristobal Francois URGENT message sent in Blottr on 05/20/24 [facility] 05-19-2024 Miscellaneous Notes What is the need: Situation: Prescription Question Background: A nurse form [place] called asking how long Pt should be using mouthwash. It only stated twice a day but not sure for how long. Recommendation: Please follow up with Tomas Augustin at [phone] Thanks! Cristobal Francois URGENT message sent in Blottr on 05/20/24 documented in this encounter [facility] 05-19-2024 Hospital Discharge instructions Zain Zafar DDS - 05/19/2024 8:34 AM EDT How to Care for Your Mouth and Teeth About this topic Brushing Your Teeth Brushing your teeth is one of the best ways to prevent and get rid of plaque in your mouth. Plaque is a film-like coating on your teeth. If it stays on your teeth, it will destroy the outside protective enamel layer of the tooth. Over time, this can lead to cavities and other problems. Toothbrushes come in many designs, colors, and styles. There is little evidence that one kind of toothbrush is better than some other one. The most important thing is to brush your teeth. Manual toothbrushes come in many sizes. You can choose the one that best fits your mouth. Look for one with soft or extra-soft bristles. Motorized toothbrushes work better for some people. They may be easier to use and may encourage you to brush. Startex your teeth 2 to 3 times per day for 2 to 3 minutes: In the morning Before you go to bed at night In the middle of the day or after eating sticky or sugary snacks How to brush your teeth properly: Put a pea-sized amount of toothpaste that has fluoride in it on your toothbrush Place your toothbrush at a 45-degree angle to the gums. Gently move your toothbrush in small circles or back and forth in very short strokes. Each stroke or confederated salish should be about the size of a tooth. Startex the outside of each tooth, the inside of each tooth, and the chewing surfaces. Startex your tongue to help get rid of germs. Some people prefer to use a tongue scraper to clean their tongue. Brushing your tongue or using a tongue scraper can help to lessen bad breath by getting rid of germs. In some cases, your dentist may prescribe you prescription strength toothpaste. Flossing Your Teeth Taking care of your mouth is more than just brushing your teeth. Flossing your teeth is also very important. It helps to get rid of plaque in the places where the toothbrush can't reach. It keeps your gums healthy. You should floss your teeth at least 1 time each day. There are many kinds of dental floss. Some are wax coated and others are not. There is flavored dental floss and floss that is more like a ribbon than a string. Some people prefer to use a floss hathaway, dental pick, or pre-threaded harpooner. There are also small brushes or rubber tips for cleaning between your teeth. Talk to your dentist about the best one for you. How to floss your teeth properly: Use a piece of dental floss about 18 inches (45 cm) long. Wind most of it around your first or middle finger on one hand. Wind the other end around your first or middle finger on your other hand. You will continue to wind the used floss on this finger. Gently slide the floss between 2 teeth, using a back and forth motion. Hold the floss around the front and back of each tooth. Gently guide the floss down the tooth and into the space between the tooth and gum. Move the floss up and down to help remove the plaque from all sides of the tooth. Use a clean section of floss as plaque appears on your floss. Repeat on all the other teeth, including the very back sides of the teeth. Using a Mouth Rinse Many people will use a mouth rinse or mouthwash as part of their mouth care routine. It is not something to do in place of brushing and flossing your teeth. A mouth rinse is used for many reasons. Some mouth rinses can help to: Make your breath fresh Give you extra fluoride Lower the amount of plaque and germs in your mouth Prevent tooth decay Prevent problems with your gums Give you more moisture in your mouth Some mouth rinses will only give you fresh breath and help to get rid of food left on your teeth. Others will also lower the amount of germs in your mouth and help with other conditions. Talk to your dentist about if you need to use a mouth rinse and about the best one for you. In some cases, your dentist may prescribe you prescription strength mouth rinse. If so, be sure to follow the directions on how to use it the right way. How to use a mouth rinse properly: First brush and floss your teeth. Measure the correct amount of rinse and swish it in your mouth. Have your teeth slightly apart and lips closed. Swish the mouth rinse back and forth for the amount of time listed in the directions. Spit out all of the mouth rinse. Do not swallow it. Do not rinse your mouth, eat, or smoke for 30 minutes after using a mouth rinse. These things can lower the protective effect of the mouth rinse. When do I need to call the doctor? Teeth or gums are sore Too much bleeding from gums or the bleeding continues when brushing your teeth for more than a week. Burning sensation in mouth, cheeks, teeth, throat, or gums Sudden increased stain on your teeth Any new or unusual sores in your mouth Teach Back: Helping You Understand The Teach Back Method helps you understand the information we are giving you. After you talk with the staff, tell them in your own words what you learned. This helps to make sure the staff has described each thing clearly. It also helps to explain things that may have been confusing. Before going home, make sure you can do these: I can tell you how to care for my mouth and teeth. I can tell you what I will do if my teeth and gums are sore. The following attachments cannot be sent through Care Everywhere.How to Care for Your Mouth and Teeth (Kazakh)documented in this encounter [facility] 05-19-2024 History of Present illness Narrative ----- Sunday, May 19, 2024 at 8:36:35 AM ----- ----- Provider: [id number] - Gary Ambrose DDS -- Clinic: [facility] ----- ANNE notes, pt is ready for tx. good [place], needed only cleaning. tooth 17 was partially covered by gum, healthy otherwise with no complaints. give the limited mouth opening, tooth was not extracted today, will be on watch. [facility] OR 3 Shilpa Valle 28 year old male Surgical Contact Serial Number: [id number] Preoperative Diagnosis: ADHD (attention deficit hyperactivity disorder) [F90.9] Allergic rhinitis [J30.9] Dysphagia [R13.10] Dystonia [G24.9] Insomnia [G47.00] Pervasive developmental disorder (HCC) [F84.9] Scoliosis of thoracic spine [M41.9] Severe intellectual disability [F72] Caries [K02.9] Postoperative Diagnosis: ADHD (attention deficit hyperactivity disorder) [F90.9] Allergic rhinitis [J30.9] Dysphagia [R13.10] Dystonia [G24.9] Insomnia [G47.00] Pervasive developmental disorder (HCC) [F84.9] Scoliosis of thoracic spine [M41.9] Severe intellectual disability [F72] Procedures: Full Dental X-Rays [48189] Full Dental Exam [67279] Full Dental Cleaning [08358] Surgeon: Debbie Vega DDS Holiday Detector Operator Surgeon: Zain Funk DDS Anesthesia: General- Nasal ETT Estimated Blood Loss: 5 cc IV Fluids: 200 cc Urine Output: Not measured. Findings: The patient was brought to the operating room and placed in the supine position on the operating room table. Following satisfactory induction of GA. The patient was intubated with a nasal endotracheal tube. He was then prepped and drapped in the usual sterile fashion for dental procedures. Full mouth series were then taken and an oral examination was completed. A moistened throat pack was then placed. Full mouth prophylaxis was then performed. The radiographs were examined by the attending and the resident and used in conjunction with th oral exam to formulate a treatment plan. The restorative aspect of the treatment plan included the following no restorations done The surgical aspect of the treatment plan included the following extraction. No extractions done. The remaining dentition was then polished with prophy paste. The oral cavity was irrigated and suctioned then the throat pack was removed. Fluoride treament was placed on the remaining dentition. The patient tolerated the procedure well was extubated in the operating room, and taken to the PACU in stable condition. Complications: None Status at end of surgery: Stable Medications: Medications Taking No outpatient medications have been marked as taking for the 05/19/24 encounter (Hospital Encounter). Dictated by: Zain Funk DDS: Dr. Lewis was present for the critical portions of the procedure. Zain Funk DDS 05/19/2024 7:07 AM ----- Signed on Sunday, May 19, 2024 at 8:39:59 AM ----- ----- Provider: [id number] Abel Ambrose DDS -- Clinic: [facility] ----- documented in this encounter [facility] 05-19-2024 Progress note Formatting of t his note is different from the original. Blood Attestation: ATTESTATION OF INFORMED CONSENT FOR BLOOD: The transfusion of blood and/or blood components were discussed with the patient and/or legal direct sales representative. The risks, benefits and alternatives were reviewed. Questions regarding blood transfusions were answered. The patient /or the patient s legal direct sales representative agree with the plan for transfusion of blood and/or blood components. [facility] Work Phone: 05-19-2024 Miscellaneous Notes Blood Attestation: ATTESTATION OF INFORMED CONSENT FOR BLOOD: The transfusion of blood and/or blood components were discussed with the patient and/or legal direct sales representative. The risks, benefits and alternatives were reviewed. Questions regarding blood transfusions were answered. The patient /or the patient s legal direct sales representative agree with the plan for transfusion of blood and/or blood components. Operative Note [facility] OR 3 Shilpa Valle 28 year old male Surgical Contact Serial Number: [id number] Preoperative Diagnosis: ADHD (attention deficit hyperactivity disorder) [F90.9] Allergic rhinitis [J30.9] Dysphagia [R13.10] Dystonia [G24.9] Insomnia [G47.00] Pervasive developmental disorder (HCC) [F84.9] Scoliosis of thoracic spine [M41.9] Severe intellectual disability [F72] Caries [K02.9] Postoperative Diagnosis: ADHD (attention deficit hyperactivity disorder) [F90.9] Allergic rhinitis [J30.9] Dysphagia [R13.10] Dystonia [G24.9] Insomnia [G47.00] Pervasive developmental disorder (HCC) [F84.9] Scoliosis of thoracic spine [M41.9] Severe intellectual disability [F72] Procedures: Full Dental X-Rays [38172] Full Dental Exam [47873] Full Dental Cleaning [95385] Surgeon: Debbie Vega DDS Holiday Detector Operator Surgeon: Zain Funk DDS Anesthesia: General- Nasal ETT Estimated Blood Loss: 5 cc IV Fluids: 200 cc Urine Output: Not measured. Findings: The patient was brought to the operating room and placed in the supine position on the operating room table. Following satisfactory induction of GA. The patient was intubated with a nasal endotracheal tube. He was then prepped and drapped in the usual sterile fashion for dental procedures. Full mouth series were then taken and an oral examination was completed. A moistened throat pack was then placed. Full mouth prophylaxis was then performed. The radiographs were examined by the attending and the resident and used in conjunction with th oral exam to formulate a treatment plan. The restorative aspect of the treatment plan included the following no restorations done The surgical aspect of the treatment plan included the following extraction. No extractions done. The remaining dentition was then polished with prophy paste. The oral cavity was irrigated and suctioned then the throat pack was removed. Fluoride treament was placed on the remaining dentition. The patient tolerated the procedure well was extubated in the operating room, and taken to the PACU in stable condition. Complications: None Status at end of surgery: Stable Medications: No outpatient medications have been marked as taking for the 05/19/24 encounter (Hospital Encounter). Dictated by: Zain Funk DDS: Dr. Lewis was present for the critical portions of the procedure. Zain Funk DDS 05/19/2024 7:07 AM Brief Operative Note [facility] OR 3 Shilpa Valle 28 year old male Surgical Contact Serial Number: [id number] Preoperative Diagnosis: ADHD (attention deficit hyperactivity disorder) [F90.9] Allergic rhinitis [J30.9] Dysphagia [R13.10] Dystonia [G24.9] Insomnia [G47.00] Pervasive developmental disorder (HCC) [F84.9] Scoliosis of thoracic spine [M41.9] Severe intellectual disability [F72] Caries [K02.9] Postoperative Diagnosis: ADHD (attention deficit hyperactivity disorder) [F90.9] Allergic rhinitis [J30.9] Dysphagia [R13.10] Dystonia [G24.9] Insomnia [G47.00] Pervasive developmental disorder (HCC) [F84.9] Scoliosis of thoracic spine [M41.9] Severe intellectual disability [F72] Procedures: Full Dental X-Rays [58820] Full Dental Exam [[id number]] Full Dental Cleaning [26702] Surgeon(s): Surgeon(s): Gary Lewis DDS [place], yoris, DDS Staff: Animal Attendants And Trainers Nurse: Treva Merino Anesthesia: General Anesthesiologist: Bridget James MD Anesthesia Staff: Jacek Arredondo DO Specimen(s): * No specimens in log * Estimated Blood Loss: less than 5 cc Lines/Drains: * No LDAs found * Temporarily Retained Foreign Object: No Findings: Normal Complications: None Status at end of surgery: Stable Activity: weight bearing as tolerated Surgical wound class: No wound. Patient Class: Outpatient Surgery. Is this a patient scheduled as an outpatient that needs to be admitted as an inpatient? No Dr. Lewis was present in the OR for the critical portion of the procedure and procedure sign-out. Signed by Zain Funk DDS 05/19/2024 7:04 AM documented in this encounter [facility] 05-19-2024 Surgery Surgical operation note Operative Note PHE OR 3 Shilpa Valle 28 year old male Surgical Contact Serial Number: [id number] Preoperative Diagnosis: ADHD (attention deficit hyperactivity disorder) [F90.9] Allergic rhinitis [J30.9] Dysphagia [R13.10] Dystonia [G24.9] Insomnia [G47.00] Pervasive developmental disorder (HCC) [F84.9] Scoliosis of thoracic spine [M41.9] Severe intellectual disability [F72] Caries [K02.9] Postoperative Diagnosis: ADHD (attention deficit hyperactivity disorder) [F90.9] Allergic rhinitis [J30.9] Dysphagia [R13.10] Dystonia [G24.9] Insomnia [G47.00] Pervasive developmental disorder (HCC) [F84.9] Scoliosis of thoracic spine [M41.9] Severe intellectual disability [F72] Procedures: Full Dental X-Rays [03723] Full Dental Exam [28318] Full Dental Cleaning [97522] Surgeon: Debbie Vega DDS Holiday Detector Operator Surgeon: Zain Funk DDS Anesthesia: General- Nasal ETT Estimated Blood Loss: 5 cc IV Fluids: 200 cc Urine Output: Not measured. Findings: The patient was brought to the operating room and placed in the supine position on the operating room table. Following satisfactory induction of GA. The patient was intubated with a nasal endotracheal tube. He was then prepped and drapped in the usual sterile fashion for dental procedures. Full mouth series were then taken and an oral examination was completed. A moistened throat pack was then placed. Full mouth prophylaxis was then performed. The radiographs were examined by the attending and the resident and used in conjunction with th oral exam to formulate a treatment plan. The restorative aspect of the treatment plan included the following no restorations done The surgical aspect of the treatment plan included the following extraction. No extractions done. The remaining dentition was then polished with prophy paste. The oral cavity was irrigated and suctioned then the throat pack was removed. Fluoride treament was placed on the remaining dentition. The patient tolerated the procedure well was extubated in the operating room, and taken to the PACU in stable condition. Complications: None Status at end of surgery: Stable Medications: No outpatient medications have been marked as taking for the 05/19/24 encounter (Hospital Encounter). Dictated by: aZin Funk DDS: Dr. Lewis was present for the critical portions of the procedure. Zain Funk DDS 05/19/2024 7:07 AM T [facility] 05-19-2024 Surgery Postoperative evaluation and management note Brief Operative Note PHE OR 3 Shilpa Valle 28 year old male Surgical Contact Serial Number: [id number] Preoperative Diagnosis: ADHD (attention deficit hyperactivity disorder) [F90.9] Allergic rhinitis [J30.9] Dysphagia [R13.10] Dystonia [G24.9] Insomnia [G47.00] Pervasive developmental disorder (HCC) [F84.9] Scoliosis of thoracic spine [M41.9] Severe intellectual disability [F72] Caries [K02.9] Postoperative Diagnosis: ADHD (attention deficit hyperactivity disorder) [F90.9] Allergic rhinitis [J30.9] Dysphagia [R13.10] Dystonia [G24.9] Insomnia [G47.00] Pervasive developmental disorder (HCC) [F84.9] Scoliosis of thoracic spine [M41.9] Severe intellectual disability [F72] Procedures: Full Dental X-Rays [08475] Full Dental Exam [34993] Full Dental Cleaning [46861] Surgeon(s): Surgeon(s): Gary Lewis DDS [place], yoris, DDS Staff: Animal Attendants And Trainers Nurse: Treva Merino Anesthesia: General Anesthesiologist: Bridget James MD Anesthesia Staff: Jacek Arredondo DO Specimen(s): * No specimens in log * Estimated Blood Loss: less than 5 cc Lines/Drains: * No LDAs found * Temporarily Retained Foreign Object: No Findings: Normal Complications: None Status at end of surgery: Stable Activity: weight bearing as tolerated Surgical wound class: No wound. Patient Class: Outpatient Surgery. Is this a patient scheduled as an outpatient that needs to be admitted as an inpatient? No Dr. Lewis was present in the OR for the critical portion of the procedure and procedure sign-out. Signed by Zain Funk DDS 05/19/2024 7:04 AM [facility] [facility] 05-19-2024 History and physical note Surgical Attestation: I have reviewed the patient's History and Physical Examination. I have personally seen and evaluated the patient, repeating finn portions. There is no significant interval change. Surgery is still indicated. Yes Consent reviewed and signed by patient/family: Yes Operative site verified and marked: site verified but not marked as bilateral (not side specific) Zain Funk DDS 05/19/2024 7:04 AM [employer] [facility] 05-19-2024 Note Surgical Attestation : I have reviewed the patient's History and Physical Examination. I have personally seen and evaluated the patient, repeating finn portions. There is no significant interval change. Surgery is still indicated. Yes Consent reviewed and signed by patient/family: Yes Operative site verified and marked: site verified but not marked as bilateral (not side specific) Zain Funk DDS 05/19/2024 7:04 AM [facility] [facility] 05-19-2024 History and physical note Surgical Attestation: I have reviewed the patient's History and Physical Examination. I have personally seen and evaluated the patient, repeating finn portions. There is no significant interval change. Surgery is still indicated. Yes Consent reviewed and signed by patient/family: Yes Operative site verified and marked: site verified but not marked as bilateral (not side specific) Zainjanelle Moraleslayton Funk DDS 05/19/2024 7:04 AM documented in this encounter [facility] 05-13-2024 Telephone encounter Note Anesthesia consent obtained and scanned into [employer]. Scheduled for surgery 05/19/2024. [facility] 05-13-2024 Miscellaneous Notes Anesthesia consent obtained and scanned into [employer]. Scheduled for surgery 05/19/2024. documented in this encounter [facility] 05-06-2024 Maria Del Rosario Darling APRN-HAIR DRYER - 05/06/2024 10:35 AM EDT On the morning of your surgery, please take only the following medications, with a small sip of water: trazodone 50 MG tablet Trihexyphenidyl HCl 5 MG TABS acetaminophen (TYLENOL) 325 mg tablet loratadine (CLARITIN) 10 MG tablet clonidine (CATAPRES) 0.2 MG tablet divalproex (DEPAKOTE) 500 MG enteric coated tablet levETIRAcetam (KEPPRA) 500 MG tablet metoprolol (LOPRESSOR) 100 MG tablet baclofen (LIORESAL) 10 MG tablet cetirizine (ZYRTEC) 10 MG tablet Please hold Strattera the morning of surgery. Please hold Vyvanse the morning of surgery. Do not take any Aspirin 7 days before surgery. Do not take any Ibuprofen, Aleve, Advil, or Motrin,Meloxicam,Naprosyn,Torad aol or any other NSAIDS 3 days before surgery. May take over the counter Acetaminophen (Tylenol) as needed for pain. Please hold all Vitamin E, Hutchinson 3, fish oil and herbal supplements for 1 week prior to surgery. Please use this CHECKLIST to prepare for your surgery/procedure: Assume that any lab or testing done during your Pre-admission testing appointment is within normal limits unless otherwise contacted. Expect a call from [employer] one business day prior to surgery for surgery arrival time and location. Please plan to restart your medications the day after surgery unless otherwise explicitly instructed. Please contact your surgeon s/proceduralist s office for any surgical or recovery types of questions. CANCELLING YOUR SURGERY/PROCEDURE: If you get a cold, are not feeling well, or become , please call your surgeon s office as soon as possible. Refer to your Preparing for Your Surgery/Procedure booklet or [email or web address] if you have questions. Contact the Pre-Admission Testing department at [phone] or your surgeon's office with any questions that are not answered. Urine testing: Patients whose assigned sex at was female, and are starting puberty or beyond, will be urine tested for per hospital policy. Eating and drinking before surgery: Adult Patients: No food or drink for 8 hours prior to surgery check in time. Plain water is allowed up to 2 hours prior to your surgery arrival time. A sip of water with approved morning medications is acceptable. Enhanced Recovery After Surgery (ERAS), bariatric, and endoscopy/colonoscopy patients should follow their surgeon s/proceduralist s instructions for clear fluids prior to surgery. Pediatric Patients (under the age of 1212 years old): Patients are not to have solid food for 8 hours prior to coming for surgery. Patients can have formula or non-human milk (skim, 2%, whole, nut-milks, soy, etc.) 6 hours prior to coming for surgery. Patients can have breast milk up to 4 hours prior to coming for surgery. Patients can have clear liquids (water, flavored renee, Pedialyte) up to 2 hours prior to coming for surgery. ON THE DAY OF SURGERY: DO bring your ID, insurance card, medication list, and a small amount of bartholomew for filling prescriptions and any medical co-pays. Do NOT wear any jewelry, (including rings, earrings, or mouth, tongue, or body piercings). Metal jewelry could cause constriction, amputation, or morrow. Loose or bulky things in your mouth can be unsafe and result in breathing problems. DO bring glasses if you wear contacts and other assistance items such as oxygen, inhaler, cane, walker, etc. Do NOT bring valuables, credit cards, or large amounts of bartholomew. Do NOT wear lotion or strong-smelling fragrance (perfume, cologne, cream or lotion). ARRANGE FOR A RIDE: If you are scheduled to go home the same day of surgery, a responsible adult MUST drive or accompany you home in a car, cab, shared ride service, or Metro-van. You will not be allowed to drive yourself home or travel home alone. Your surgery may be cancelled if you do not have a ride. A responsible adult must stay with you after surgery. [facility] call [facility] if you need transportation assistance or have concerns about going home [phone]. PEDIATRIC or ADOLESCENTS: Parents or a legal guardian must remain at the hospital during surgery. You will need to make childcare arrangements for your other small children to remain at home or bring an adult with you who can supervise them in the waiting area while you are with your child. Please bring legal guardianship papers with you if applicable. Patients who whose assigned sex at was female, and are starting puberty, will be tested for per hospital policy. SLEEP APNEA PATIENTS: Bring your sleep apnea machine and mask. PLEASE BE ON TIME. A late arrival may result in the cancellation/ delay of your surgery. Thank you for choosing [facility]; it is our pleasure to care for you. Post-op Nausea and Vomiting: A risk of anesthesia is nausea and/or vomiting (PONV). Certain patients are at higher risk than others. Talk to your anesthesiologist about the plan to minimize this risk. In general, it is best to start with only ice chips or small sips of water, then progress to clear, non-alcoholic fluids. You do not have to eat if you do not feel like it; fluids are the most important in the first 24 hours after surgery. If you start to eat, try bananas, applesauce, plain toast, saltine crackers, or broth; avoid fried or fatty foods. Make sure to eat something about 15 minutes before taking any pain medications. Seek medical attention for any prolonged PONV and signs of dehydration. If you would like more information regarding Advance Directives (Living Will, Health Care Power of Community Affairs Director) please contact our Social Work Department at . documented in this encounter [facility] 05-06-2024 History of Present illness Narrative Pre-Admission Testing Consultation Shilpa Valle, [id number] 28 year old Male 05/05/2024 *Spoke to Nurse Burton from patient's facility to review all patient instructions/medication instructions and per Josephine, the facility will be holding all patient's medications the morning of surgery d/t patient not being able to take any medications without pudding per DON* Consult placed to PAT by Dr. Lewis due to significant PMH of HTN. PAT Triage Risk Score Total Score: 2 2 Patient is on more than 2 antihypertension medications. Shilpa Valle is scheduled for (Bilateral) DENTAL RESTORATIONS on 05/19/2024 at [facility]. Pre-Op diagnosis of: Pre-Op Diagnosis Codes: * Caries [K02.9] HISTORY OF PRESENT ILLNESS: Patient is here for pre-admission optimization and education prior to surgery. RECENT ILLNESS: Serious illness or hospitalization within the last six months. No STOP BANG: ALLERGIES: No Known Allergies Patient Active Problem List: Dental caries [K02.9] Dental decay [K02.9] ADHD (attention deficit hyperactivity disorder) [F90.9] Allergic rhinitis [J30.9] Dysphagia [R13.10] Dystonia [G24.9] Insomnia [G47.00] Pervasive developmental disorder (HCC) [F84.9] Scoliosis of thoracic spine [M41.9] Severe intellectual disability [F72] Caries [K02.9] SOCIAL HISTORY: has no history on file for drug use. MEDICAL HISTORY: Past Medical History: Diagnosis Date ADHD social science manager Group facility assessment Autism with aggression; social science manager Group facility assessment Dysmorphic features social science manager Group facility assessment Dysphagia social science manager Group facility assessment Dystonia Cervical and Truncal; social science manager Group facility assessment Eczema social science manager Group facility assessment Hyperopia of both eyes with astigmatism social science manager Group facility assessment Insomnia social science manager Group facility assessment Onychomycosis social science manager Group facility assessment Pervasive developmental disorder social science manager Group facility assessment Scoliosis Thoracic spine, social science manager Group facility assessment Seasonal allergies social science manager Group facility assessment Severe intellectual disability SURGICAL HISTORY: Past Surgical History: Procedure Laterality Date DENTAL RESTORATIONS Bilateral 08/20/2017 Procedure: DENTAL RESTORATIONS; Surgeon: Jadyn Kearns DDS; Location: [facility] [place]; Service: Dental DENTAL RESTORATIONS N/A 01/17/2019 Procedure: DENTAL RESTORATIONS, full mouth x-rays, cleaning; Surgeon: Gary Lewis DDS; Location: [facility]; Service: Dental DENTAL RESTORATIONS N/A 12/30/2021 Procedure: DENTAL RESTORATIONS; Surgeon: Tee De La Rosa DDS; Location: [facility] [place]; Service: Dental EXTRACTION, TOOTH 08/20/2017 Procedure: EXTRACTION, TOOTH; Surgeon: Jadyn Kearns DDS; Location: [facility] [place]; Service: Dental Past Medical History and Review of Systems Pulmonary Dental Endo Neuro/Psych (+) attention deficit hyperactivity disorder Comment: Autism aggression Insomnia Cardiovascular GI/Hepatic/Renal Heme/Other Other ROS: Severe intellectual disability Pervasive developmental delay Scoliosis of thoracic spine Cervical/trunk dystonia Dental caries PREVIOUS ANESTHETIC COMPLICATIONS: No known prior anesthesia. CURRENT MEDICATION LIST: Current Outpatient Medications Medication Sig Dispense Refill trazodone 50 MG tablet Take 50 mg by mouth 3 times daily. Takes half tablet tid Trihexyphenidyl HCl 5 MG TABS Take by mouth 3 times daily. Takes 1 1/2 tab tid lisdexamfetamine (VYVANSE) 70 MG capsule Take 70 mg by mouth daily. acetaminophen (TYLENOL) 325 mg tablet Take 325 mg by mouth every 4 hours as needed for Pain or Fever. desonide (DESOWEN) 0.05 % cream Apply topically 2 times daily. Apply thin layer to affected area. loratadine (CLARITIN) 10 MG tablet Take 10 mg by mouth daily as needed. clonidine (CATAPRES) 0.2 MG tablet Take 0.2 mg by mouth 3 times daily. divalproex (DEPAKOTE) 500 MG enteric coated tablet Take 500 mg by mouth 3 times daily. levETIRAcetam (KEPPRA) 500 MG tablet Take 500 mg by mouth 3 times daily. metoprolol (LOPRESSOR) 100 MG tablet Take 100 mg by mouth 3 times daily. olanzapine (ZYPREXA) 5 MG tablet Take 5 mg by mouth at bedtime. Takes one and a half tabs at hs atomoxetine (STRATTERA) 40 MG capsule Take 40 mg by mouth 2 times daily. bacitracin 500 UNIT/GM OINT ointment Apply externally 2 times daily Indications: nares. baclofen (LIORESAL) 10 MG tablet Take 10 mg by mouth 4 times daily. cetirizine (ZYRTEC) 10 MG tablet Take 10 mg by mouth daily. No current facility-administered medications for this visit. HEIGHT: Data Unavailable WEIGHT: Weight was 91.2 kg on 11/08/2021 BMI: Data Unavailable VITAL SIGNS: There were no vitals taken for this visit. PAIN ASSESSMENT: Severity: patient non-verbal for our appointment, smiling, no grimacing/wincing. Location: N/A AIRWAY EXAM: Mallampati score: 4 TMD: Adequate Neck Extension/ Flexion: Adequate Mouth Opening: Not Adequate Dentition: unable to assess Micrognathia/Overbite: No FUNCTIONAL CAPACITY: <4 mets d/t abnormal gait PHYSICAL EXAM: Eyes: Deferred ENT: Deferred Pulmonary: Chest clear to auscultation bilaterally Cardiovascular: RRR with S1S2 and No murmurs, gallops, or rubs Abdomen: Soft and non-tender and Bowel sounds normal Extremities: No gross or obvious abnormalities Neurologic: Awake, smiling, non-verbal Psychiatric: Deferred Skin: No gross or obvious abnormalities on visible skin Assessment and Plan: 1) Pre-Admission Evaluation 2) Pre-Op Diagnosis Codes: * Caries [K02.9] 3) ADHD-Nursing instructed to hold Strattera and Vyvanse the day of surgery. LABS, TESTS, CONSULTS ORDERED: No orders or meds were signed during this encounter TESTS REVIEWED: I personally reviewed and interpreting and findings were: CXRay: No Chest x-ray found EKG: none ECHO: Echocardiogram date: Not Found Stress test date: Last StressTest: none found going back to 11/02/1998 Patient is medically optimized for surgery. This note will be forwarded to the referring provider. Patient should follow up with referring provider. Patient has been directed to discuss specific recovery questions with his/her surgeon/proceduralist. Visit activities: - preparing to see the patient (e.g., review of tests) - obtaining and/or reviewing separately obtained history - performing a medically appropriate examination and/or evaluation - counseling and educating the patient/family/caregiver - documenting clinical information in the electronic or other health record Interviewer signature: VAISHALI Saez 9:59 PM 05/05/2024 documented in this encounter [facility] 05-06-2024 Note Pre-Admission Testin g Consultation Shilpa Valle, [id number] 28 year old Male 05/05/2024 *Spoke to Nurse Burton from patient's facility to review all patient instructions/medication instructions and per Josephine, the facility will be holding all patient's medications the morning of surgery d/t patient not being able to take any medications without pudding per DON* Consult placed to PAT by Dr. Lewis due to significant PMH of HTN. PAT Triage Risk Score Total Score: 2 2 Patient is on more than 2 antihypertension medications. Shilpa Valle is scheduled for (Bilateral) DENTAL RESTORATIONS on 05/19/2024 at [facility]. Pre-Op diagnosis of: Pre-Op Diagnosis Codes: * Caries [K02.9] HISTORY OF PRESENT ILLNESS: Patient is here for pre-admission optimization and education prior to surgery. RECENT ILLNESS: Serious illness or hospitalization within the last six months. No STOP BANG: ALLERGIES: No Known Allergies Patient Active Problem List: Dental caries [K02.9] Dental decay [K02.9] ADHD (attention deficit hyperactivity disorder) [F90.9] Allergic rhinitis [J30.9] Dysphagia [R13.10] Dystonia [G24.9] Insomnia [G47.00] Pervasive developmental disorder (HCC) [F84.9] Scoliosis of thoracic spine [M41.9] Severe intellectual disability [F72] Caries [K02.9] SOCIAL HISTORY: has no history on file for drug use. MEDICAL HISTORY: Past Medical History: Diagnosis Date ADHD social science manager Group facility assessment Autism with aggression; social science manager Group facility assessment Dysmorphic features social science manager Group facility assessment Dysphagia social science manager Group facility assessment Dystonia Cervical and Truncal; social science manager Group facility assessment Eczema social science manager Group facility assessment Hyperopia of both eyes with astigmatism social science manager Group facility assessment Insomnia social science manager Group facility assessment Onychomycosis social science manager Group facility assessment Pervasive developmental disorder social science manager Group facility assessment Scoliosis Thoracic spine, social science manager Group facility assessment Seasonal allergies social science manager Group facility assessment Severe intellectual disability SURGICAL HISTORY: Past Surgical History: Procedure Laterality Date DENTAL RESTORATIONS Bilateral 08/20/2017 Procedure: DENTAL RESTORATIONS; Surgeon: Jadyn Kearns DDS; Location: [facility] [place]; Service: Dental DENTAL RESTORATIONS N/A 01/17/2019 Procedure: DENTAL RESTORATIONS, full mouth x-rays, cleaning; Surgeon: Gary Lewis DDS; Location: [facility]; Service: Dental DENTAL RESTORATIONS N/A 12/30/2021 Procedure: DENTAL RESTORATIONS; Surgeon: Tee De La Rosa DDS; Location: [facility] [place]; Service: Dental EXTRACTION, TOOTH 08/20/2017 Procedure: EXTRACTION, TOOTH; Surgeon: Jadyn Kearns DDS; Location: [facility] [place]; Service: Dental Past Medical History and Review of Systems Pulmonary Dental Endo Neuro/Psych (+) attention deficit hyperactivity disorder Comment: Autism aggression Insomnia Cardiovascular GI/Hepatic/Renal Heme/Other Other ROS: Severe intellectual disability Pervasive developmental delay Scoliosis of thoracic spine Cervical/trunk dystonia Dental caries PREVIOUS ANESTHETIC COMPLICATIONS: No known prior anesthesia. CURRENT MEDICATION LIST: Current Outpatient Medications Medication Sig Dispense Refill trazodone 50 MG tablet Take 50 mg by mouth 3 times daily. Takes half tablet tid Trihexyphenidyl HCl 5 MG TABS Take by mouth 3 times daily. Takes 1 1/2 tab tid lisdexamfetamine (VYVANSE) 70 MG capsule Take 70 mg by mouth daily. acetaminophen (TYLENOL) 325 mg tablet Take 325 mg by mouth every 4 hours as needed for Pain or Fever. desonide (DESOWEN) 0.05 % cream Apply topically 2 times daily. Apply thin layer to affected area. loratadine (CLARITIN) 10 MG tablet Take 10 mg by mouth daily as needed. clonidine (CATAPRES) 0.2 MG tablet Take 0.2 mg by mouth 3 times daily. divalproex (DEPAKOTE) 500 MG enteric coated tablet Take 500 mg by mouth 3 times daily. levETIRAcetam (KEPPRA) 500 MG tablet Take 500 mg by mouth 3 times daily. metoprolol (LOPRESSOR) 100 MG tablet Take 100 mg by mouth 3 times daily. olanzapine (ZYPREXA) 5 MG tablet Take 5 mg by mouth at bedtime. Takes one and a half tabs at hs atomoxetine (STRATTERA) 40 MG capsule Take 40 mg by mouth 2 times daily. bacitracin 500 UNIT/GM OINT ointment Apply externally 2 times daily Indications: nares. baclofen (LIORESAL) 10 MG tablet Take 10 mg by mouth 4 times daily. cetirizine (ZYRTEC) 10 MG tablet Take 10 mg by mouth daily. No current facility-administered medications for this visit. HEIGHT: Data Unavailable WEIGHT: Weight was 91.2 kg on 11/08/2021 BMI: Data Unavailable VITAL SIGNS: There were no vitals taken for this visit. PAIN ASSESSMENT: Severity: patient non-verbal for our appointment, smiling, no grimacin (more content not included)... [facility] [employer] [facility] 08-17-2022 History of Present illness Narrative ----- August at 12:23:19 PM ----- ----- Provider: [id number] Resident Williams -- Clinic: [place] ----- OR EVALUATION Patient presents for evaluation to determine best course of treatment due to history of . ADHD Parvasive develpomental disorder Sever Intellecutal disability Patient is accompanied by caregiver for today's appointment. Patient partially cooperated for a partial intraoral exam. Clinical findings: Gingivitis and Missing teeth It is best suited that this patient have full comprehensive examination, radiographs and treatment completed in the OR setting. Explained that the patient will be added to our OR waiting list, and the legal guardian will be contacted once a time slot becomes available. Legal Guardian: Parents Andrea and Maddy Valle [phone] OR order was placed today. Next Visit: OR ----- Signed on Thursday, August 18, 2022 at 6:42:36 AM ----- ----- Provider: [id number] Abel Martinez DDS -- Clinic: [place] ----- documented in this encounter [facility] 12-30-2021 Hospital Discharge instructions Mattie Redd RN - 12/30/2021 1:26 PM EDT PERIOPERATIVE DISCHARGE/HOME-GOING INSTRUCTIONS ANESTHESIA - GENERAL (ADULT) If a problem arises, you may contact your physician by calling [phone] and asking for the resident community association manager for dental service. Special Care Needs: Activity: Rest at home today and tomorrow, then progress to your regular activities as tolerated. Diet: Clear liquids are best tolerated at first. If you are not nauseated, you can progress your diet to solid foods as tolerated. Possible post-operative precautions: Call you doctor or clinic for: 1. Signs of infection such as fever or chills. 2. Severe pain that in not relieved by Tylenol or your pain medicine prescription. 3. You may have a sore throat - it is usually gone in 1 to 2 days. Post-anesthesia safety: Possible side effects include drowsiness, dizziness, or inability to think clearly. For your safety, do not drive, drink alcoholic beverages, take any unprescribed medication or make any important decisions for 24 hours. A responsible adult should be with you for 24 hours. If no urine by 5 pm or you become very uncomfortable and can t urinate, call [phone] or come to the emergency room. documented in this encounter [facility] 12-30-2021 Miscellaneous Notes Brief Operative Note PHE OR 3 Shilpa Valle 26 year old male Surgical Contact Serial Number: [id number] Preoperative Diagnosis: Chronic Periodontitis K05.30 ID F72 Postoperative Diagnosis: ID F72 Procedures: No data filed Surgeon(s): Surgeon(s): Tee De La Rosa DDS Assitant Surgeon: Angel Benitez DDS Staff: Animal Attendants And Trainers Nurse: Melanie Edmond RN; Radha Willis RN Stemming Machine Operator: Roslyn Mariee MD Anesthesia: General Anesthesiologist: David Henning MD CAA: Andrea Kramer CAA Specimen(s): * No specimens in log * Estimated Blood Loss: less than 5 cc Lines/Drains: Peripheral IV Access: 12/30/21 1130 20 gauge Anterior;Right;Upper Arm (Active) Site Assessment WNL;Dressing intact 12/30/21 1128 Infusion Status Port #1 Infusing 12/30/21 1128 Temporarily Retained Foreign Object: No Findings: Normal Complications: None Status at end of surgery: Stable Activity: Ad Edna Surgical wound class: No wound. Patient Class: Outpatient Surgery. Is this a patient scheduled as an outpatient that needs to be admitted as an inpatient? No Dr. Tee Manzanares DDS was present in the OR for the critical portion of the procedure and procedure sign-out. Signed by Angel Benitez DDS 12/30/2021 12:33 PM Surgical Case Number Data Unavailable Operating Room Data Unavailable Preoperative Diagnosis(es): Chronic Periodontitis K05.30 ID F72 Postoperative Diagnosis(es): ID F72 @ENCORD@ Surgeon: Tee Manzanares DDS Holiday Detector Operator Surgeon: Angel Benitez DDS Anesthesia: General- Nasal ETT Estimated Blood Loss: 5 cc IV Fluids: 600 cc Urine Output: Not measured. Findings: The patient was brought to the operating room and placed in the supine position on the operating room table. Following satisfactory induction of GA. The patient was intubated with a nasal endotracheal tube. He was then prepped and drapped in the usual sterile fashion for dental procedures. Full mouth series were then taken and an oral examination was completed. A moistened throat pack was then placed. Full comprehensive Periodontal exam was done, Heavy plaque, heavy supragingival calculus, moderate subgingival calculus. Generalized 4 - 7 mm pockets recorded. Full mouth scaling and root planing was then performed. The radiographs were examined by the attending and the resident and used in conjunction with th oral exam to formulate a treatment plan. NO lutheran, no extractions done. The remaining dentition was then polished with prophy paste. The oral cavity was irrigated and suctioned then the throat pack was removed. Fluoride treament was placed on the remaining dentition. The patient tolerated the procedure well was extubated in the operating room, and taken to the PACU in stable condition. Complications: none Status at end of surgery: Stable Medications: Outpatient Medications Marked as Taking for the 12/30/21 encounter (Hospital Encounter) Medication Sig Dispense Refill trazodone 50 MG tablet Take 50 mg by mouth 3 times daily. Takes half tablet tid Trihexyphenidyl HCl 5 MG TABS Take by mouth 3 times daily. Takes 1 1/2 tab tid lisdexamfetamine (VYVANSE) 70 MG capsule Take 70 mg by mouth daily. acetaminophen (TYLENOL) 325 mg tablet Take 325 mg by mouth every 4 hours as needed for Pain or Fever. desonide (DESOWEN) 0.05 % cream Apply topically 2 times daily. Apply thin layer to affected area. loratadine (CLARITIN) 10 MG tablet Take 10 mg by mouth daily as needed. clonidine (CATAPRES) 0.2 MG tablet Take 0.2 mg by mouth 3 times daily. divalproex (DEPAKOTE) 500 MG enteric coated tablet Take 500 mg by mouth 3 times daily. levETIRAcetam (KEPPRA) 500 MG tablet Take 500 mg by mouth 3 times daily. metoprolol (LOPRESSOR) 100 MG tablet Take 100 mg by mouth 3 times daily. olanzapine (ZYPREXA) 5 MG tablet Take 5 mg by mouth at bedtime. Takes one and a half tabs at hs atomoxetine (STRATTERA) 40 MG capsule Take 40 mg by mouth 2 times daily. bacitracin 500 UNIT/GM OINT ointment Apply externally 2 times daily Indications: nares. baclofen (LIORESAL) 10 MG tablet Take 10 mg by mouth 4 times daily. cetirizine (ZYRTEC) 10 MG tablet Take 10 mg by mouth daily. Dictated by: Angel Benitez DDS: Tee Manzanares DDS was present for the critical portions of the procedure. Angel Benitez DDS 12/30/2021 12:35 PM Anesthesia Attestation ATTESTATION OF INFORMED CONSENT FOR ANESTHESIA Anesthesia options were discussed with the patient and/or legal direct sales representative. The risks, benefits and alternatives were reviewed. Questions regarding anesthesia were answered. Patient and/or legal direct sales representative knows such anesthetics and procedures may be performed by Resident physicians, Certified Anesthesiologist Assistants, or Certified Nurse Anesthetists under the supervision of a physician. The patient /or the patient s legal direct sales representative agree with the plan for anesthesia. Blood Attestation ATTESTATION OF INFORMED CONSENT FOR BLOOD The transfusion of blood and/or blood components were discussed with the patient and/or legal direct sales representative. The risks, benefits and alternatives were reviewed. Questions regarding blood transfusions were answered. The patient /or the patient s legal direct sales representative agree with the plan for transfusion of blood and/or blood components. documented in this encounter [facility] 12-30-2021 Note Formatting of this n ote is different from the original. Brief Operative Note PHE OR 3 Shilpa Valle 26 year old male Surgical Contact Serial Number: [id number] Preoperative Diagnosis: Chronic Periodontitis K05.30 ID F72 Postoperative Diagnosis: ID F72 Procedures: No data filed Surgeon(s): Surgeon(s): Tee De La Rosa DDS Assitant Surgeon: Angel Benitez DDS Staff: Animal Attendants And Trainers Nurse: Melanie Edmond RN; Radha Willis RN Stemming Machine Operator: Roslyn Mariee MD Anesthesia: General Anesthesiologist: David Henning MD CAA: Andrea Kramer CAA Specimen(s): * No specimens in log * Estimated Blood Loss: less than 5 cc Lines/Drains: Peripheral IV Access: 12/30/21 1130 20 gauge Anterior;Right;Upper Arm (Active) Site Assessment WNL;Dressing intact 12/30/21 1128 Infusion Status Port #1 Infusing 12/30/21 1128 Temporarily Retained Foreign Object: No Findings: Normal Complications: None Status at end of surgery: Stable Activity: Ad Edna Surgical wound class: No wound. Patient Class: Outpatient Surgery. Is this a patient scheduled as an outpatient that needs to be admitted as an inpatient? No Dr. Tee Manzanares DDS was present in the OR for the critical portion of the procedure and procedure sign-out. Signed by Angel Benitez DDS 12/30/2021 12:33 PM T [facility] 12-30-2021 Note Formatting of this n ote is different from the original. Surgical Case Number Data Unavailable Operating Room Data Unavailable Preoperative Diagnosis(es): Chronic Periodontitis K05.30 ID F72 Postoperative Diagnosis(es): ID F72 @ENCORD@ Surgeon: Tee Manzanares DDS Holiday Detector Operator Surgeon: Angel Benitez DDS Anesthesia: General- Nasal ETT Estimated Blood Loss: 5 cc IV Fluids: 600 cc Urine Output: Not measured. Findings: The patient was brought to the operating room and placed in the supine position on the operating room table. Following satisfactory induction of GA. The patient was intubated with a nasal endotracheal tube. He was then prepped and drapped in the usual sterile fashion for dental procedures. Full mouth series were then taken and an oral examination was completed. A moistened throat pack was then placed. Full comprehensive Periodontal exam was done, Heavy plaque, heavy supragingival calculus, moderate subgingival calculus. Generalized 4 - 7 mm pockets recorded. Full mouth scaling and root planing was then performed. The radiographs were examined by the attending and the resident and used in conjunction with th oral exam to formulate a treatment plan. NO lutheran, no extractions done. The remaining dentition was then polished with prophy paste. The oral cavity was irrigated and suctioned then the throat pack was removed. Fluoride treament was placed on the remaining dentition. The patient tolerated the procedure well was extubated in the operating room, and taken to the PACU in stable condition. Complications: none Status at end of surgery: Stable Medications: Outpatient Medications Marked as Taking for the 12/30/21 encounter (Hospital Encounter) Medication Sig Dispense Refill trazodone 50 MG tablet Take 50 mg by mouth 3 times daily. Takes half tablet tid Trihexyphenidyl HCl 5 MG TABS Take by mouth 3 times daily. Takes 1 1/2 tab tid lisdexamfetamine (VYVANSE) 70 MG capsule Take 70 mg by mouth daily. acetaminophen (TYLENOL) 325 mg tablet Take 325 mg by mouth every 4 hours as needed for Pain or Fever. desonide (DESOWEN) 0.05 % cream Apply topically 2 times daily. Apply thin layer to affected area. loratadine (CLARITIN) 10 MG tablet Take 10 mg by mouth daily as needed. clonidine (CATAPRES) 0.2 MG tablet Take 0.2 mg by mouth 3 times daily. divalproex (DEPAKOTE) 500 MG enteric coated tablet Take 500 mg by mouth 3 times daily. levETIRAcetam (KEPPRA) 500 MG tablet Take 500 mg by mouth 3 times daily. metoprolol (LOPRESSOR) 100 MG tablet Take 100 mg by mouth 3 times daily. olanzapine (ZYPREXA) 5 MG tablet Take 5 mg by mouth at bedtime. Takes one and a half tabs at hs atomoxetine (STRATTERA) 40 MG capsule Take 40 mg by mouth 2 times daily. bacitracin 500 UNIT/GM OINT ointment Apply externally 2 times daily Indications: nares. baclofen (LIORESAL) 10 MG tablet Take 10 mg by mouth 4 times daily. cetirizine (ZYRTEC) 10 MG tablet Take 10 mg by mouth daily. Dictated by: Angel Benitez DDS: Tee Manzanares DDS was present for the critical portions of the procedure. Angel Benitez DDS 12/30/2021 12:35 PM [facility] 12-30-2021 History and physical note Surgical Attestation: I have reviewed the patient's History and Physical Examination. I have personally seen and evaluated the patient, repeating finn portions. There is no significant interval change. Surgery is still indicated. Yes Consent reviewed and signed by patient/family: Yes Operative site verified and marked: site verified but not marked as not anatomically possible Angel Benitez DDS 12/30/2021 11:15 AM [facility] 12-30-2021 History and physical note Surgical Attestation: I have reviewed the patient's History and Physical Examination. I have personally seen and evaluated the patient, repeating finn portions. There is no significant interval change. Surgery is still indicated. Yes Consent reviewed and signed by patient/family: Yes Operative site verified and marked: site verified but not marked as not anatomically possible Angel Benitez DDS 12/30/2021 11:15 AM documented in this encounter [facility] 12-30-2021 Note Formatting of this n ote is different from the original. Anesthesia Attestation ATTESTATION OF INFORMED CONSENT FOR ANESTHESIA Anesthesia options were discussed with the patient and/or legal direct sales representative. The risks, benefits and alternatives were reviewed. Questions regarding anesthesia were answered. Patient and/or legal direct sales representative knows such anesthetics and procedures may be performed by Resident physicians, Certified Anesthesiologist Assistants, or Certified Nurse Anesthetists under the supervision of a physician. The patient /or the patient s legal direct sales representative agree with the plan for anesthesia. [facility] Work Phone: 12-30-2021 Note Formatting of this n ote is different from the original. Blood Attestation ATTESTATION OF INFORMED CONSENT FOR BLOOD The transfusion of blood and/or blood components were discussed with the patient and/or legal direct sales representative. The risks, benefits and alternatives were reviewed. Questions regarding blood transfusions were answered. The patient /or the patient s legal direct sales representative agree with the plan for transfusion of blood and/or blood components. [facility] 12-08-2021 Miscellaneous Notes Patient is vaccinated for COVID-19: Pfizer on 08/17/2020, 09/07/2020 & 06/01/2021. Patient does not require pre-op COVID testing per current guidelines. documented in this encounter [facility] Evaluation + Plan note No data available for this section [facility] Evaluation note Diagnosis Dental decay- Primary Unspecified dental [facility] Caries- Primary Unspecified dental [facility] Diagnosis Caries- Primary Unspecified dental caries Caries- Primary Unspecified dental caries [facility] Diagnosis Caries- Primary Unspecified dental caries Preoperative testing- Primary Preoperative examination, unspecified Body mass index (BMI) 31.0-31.9, adult Caries Unspecified dental caries [facility] Diagnosis Caries- Primary Unspecified dental caries [facility] No data available for this section [facility] No data available for this section [facility] Narrative* Auth/Cert Specialty Diagnoses / Procedures Referred By Anirudh richardson Referred To Contact Ambulatory Surgery Diagnoses Caries Caries [K02.9] Procedures UNLISTED PROCEDURE, DENTOALVEOLAR STRUCTURES ANESTHESIA, INTRAORAL PROC, W/BX; NOS DENTAL RESTORATIONS Tee De La Rosa, DDS [address] [place] [address] [facility] [address] [place] [address] Phone: [phone] Referral ID Status Reason Start Date Expiration Date Visits Re quested Visits Authorized [id number] [facility] Summary Purpose Family History No Family History Records FoundNo Family History Records FoundNo Family History Records FoundNo Family History Records FoundNo Family History Records Found Advance Directives No Advanced Directives Records FoundNo Advanced Directives Records FoundNo Advanced Directives Records FoundNo Advanced Directives Records FoundNo Advanced Directives Records Found Reason for Referral Specialty Diagnoses / Procedures Referred By Anirudh richardson Referred To Contact Anesthesiology Diagnoses Caries Andrae-Gary Perla, DDS [address] [id number] [facility] PRE ADMISSION [facility] [address] [place] [address] Referral ID Status Reason Start Date Expiration Date V isits Requested Visits Authorized [id number] Authorized 04/11/2024 04/11/2025 1 1 Scheduling Instructions Your surgical team will reach out to you to schedule a pre-admission testing appointment. Question Answer Reason for consult? Recommended PAT Risk Score Additional Source Comments (unrecognized sect ion and content) No Status Records FoundNo Status Records FoundNo Status Records FoundNo Status Records FoundNo Status Records Found INFORMATION SOURCE (unrecogn ized section and content) DATE CREATED AUTHOR 01/29/2018 [facility] DATE CREATED AUTHOR AUTHOR'S ORGANIZ ATION 07/26/2022 [facility] DATE CREATED AUTHOR AUTHOR'S ORGANIZ ATION 09/24/2022 [facility] DATE CREATED AUTHOR AUTHOR'S ORGANIZ ATION 08/22/2023 [facility] DATE CREATED AUTHOR AUTHOR'S ORGANIZ ATION 05/26/2024 [facility] [employer] [facility] Reason for Visit (unrecogniz ed section and content) Reason Onset Date Comments Pre-surgical Evaluation 12/08/2021 Pre-op C OVID testing not needed Reason Onset Date Comments PAT 05/13/2024 Anesthesia conse nt obtained Specialty Diagnoses / Procedures Referred By Anirudh richardson Referred To Contact Ambulatory Surgery Diagnoses Caries Caries [K02.9] Procedures ANESTHESIA, INTRAORAL PROC, W/BX; NOS UNLISTED PROCEDURE, DENTOALVEOLAR STRUCTURES DENTAL RESTORATIONS Gary Lewis, DDS [address] [place] [address] [facility] [employer] [facility] [address] [place] [address] Phone: [phone] Referral ID Status Reason Start Date Expiration Date Visits Re quested Visits Authorized [id number] 3 Reason Onset Date Comments Prescription Question 05/19/2024 Continuous Active and Recently Administ ered Medications (unrecognized section and content) Medication Order 12/28/2021 12/29/2021 12/30/2021 lactated ringers iv infusion Intravenous, at 125 mL/hr, CONTINUOUS, Starting on Sun12/30/21 at 1100, Until Discontinued 1100 (Due) PRN Medication Order 12/28/2021 12/29/2021 12/30/2021 acetaminophen (TYLENOL) tablet 650 mg, Oral, PACU ONCE PRN, Starting on Sun12/30/21 at 1052, Until Sun12/30/21 at 1651, Mild Pain (pain score 1,2,3), PACU Now naloxone (NARCAN) 0.4 MG/ML injection 0.4 mg, Intravenous Push, PRN, Starting on Sun12/30/21 at 1051, Until Discontinued, Respiratory Rate Less Than 8 for adults and less than 12 for Peds or for suspected overdose, PACU Now ondansetron (ZOFRAN) 4 MG/2ML injection 4 mg, Intravenous Push, PACU ONCE PRN, Starting on Sun12/30/21 at 1052, Until Sun12/30/21 at 1651, Nausea, Vomiting, PACU Now sodium chloride 0.9 % (PF) 0.9 % injection 3 mL, Intravenous Push, PRN, Starting on Sun12/30/21 at 1051, Until Discontinued, For medication administration and blood draw, PACU Now PRN Medication Order 05/17/2024 05/18/2024 05/19/2024 bacitracin 500 UNIT/GM ointment (CANCELED) PRN, Starting on Sun05/19/24 at 0824, Until Sun05/19/24 at 0843, Intra-op 0824 (Given - Provid er: Treva Merino - Comment: Applied to lips at end of procedure) HYDROmorphone (DILAUDID) 0.2 MG/ML injection 0.2 mg 0.2 mg, Intravenous Push, PACU EVERY 15 MIN PRN X 4 DOSES, 4 doses, Starting on Sun05/19/24 at 0712, Until Sun05/21/24 at 0711, Moderate Pain (pain score 4,5,6), PACU Now naloxone (NARCAN) 0.4 MG/ML injection 0.4 mg, Intravenous Push, PRN, Starting on Sun05/19/24 at 0712, Until Discontinued, Respiratory Rate Less Than 8 for adults and less than 12 for Peds or for suspected overdose, PACU Now oxyCODONE (ROXICODONE) 5 mg/5 mL oral solution 5 mg, Oral, PACU ONCE PRN, Starting on Sun05/19/24 at 0712, Until Sun05/19/24 at 1311, Mild Pain (pain score 1,2,3), PACU Now sodium chloride 0.9 % injection 3 mL, Intravenous Push, PRN, Starting on Sun05/19/24 at 0712, Until Discontinued, For medication administration and blood draw, PACU Now Patient Care team informatio n (unrecognized section and content) Personnel Name: MAYUR FLORES DO Address: Address: [address] [place] [id number] FOR RECORDS PERTAINING TO PATIENTS WHO ARE OR HAVE BEEN ENROLLED IN A CHEMICAL DEPENDENCY/SUBSTANCEABUSE PROGRAM, SOME INFORMATION MAY BE OMITTED. This clinical summary was aggregated from multiple sources. Caution should be exercised in using it in the provision of clinical care. This summary normalizes information from multiple sources, and as a consequence, information in this document may materially change the coding, format and clinical context of patient data. In addition, data may be omitted in some cases. CLINICAL DECISIONS SHOULD BE BASED ON THE PRIMARY CLINICAL RECORDS. [facility]. provides no warranty or guarantee of the accuracy or completeness of information in this document.
[2025-01-20 07:10] LABS: Basophils Percent Auto 0.2 % (0.2-2.0); Eosinophils Percent Auto 0.6 % (0.9-7.0); Hematocrit 46.1 % (42.0-54.0); Hemoglobin 15.5 g/dL (14.0-18.0); Lymphocytes Absolute Auto 2.3 10^3/uL (1.2-3.8); Lymphocytes Percent Auto 45.2 % (20.5-60.0); Mean Corpuscular HGB Conc 33.6 g/dL (29.9-35.2); Mean Corpuscular Hemoglobin 30.3 pg (25.9-34.0); Mean Corpuscular Volume 90.2 fL (80.0-94.0); Mean Platelet Volume 9.7 fL (9.5-13.5); Monocytes Absolute Auto 0.7 10^3/uL (0.3-0.8); Monocytes Percent Auto 13.6 % (1.7-12.0); Neutrophils Absolute Auto 2.1 10^3/uL (1.4-6.5); Neutrophils Percent Auto 40.4 % (43.0-75.0); Platelet Count 195 10^3/uL (150-450); Red Blood Count 5.11 10^6/uL (4.70-6.10); White Blood Count 5.1 10^3/uL (4.0-11.0)
[2025-01-20 08:20] LABS: Alanine Aminotransferase 35 U/L (16-63); Albumin Level 3.8 g/dL (3.4-5.0); Alkaline Phosphatase 62 U/L (46-116); Anion Gap 12.8; Aspartate Amino Transferase 24 U/L (15-37); Bilirubin Total 0.4 mg/dL (0.2-1.0); Calcium 9.7 mg/dL (8.5-10.1); Carbon Dioxide 29.2 mmol/L (21.0-32.0); Chloride 98 mmol/L (98-107); Estimated GFR (African America >60 (>=60 mL/min/1.73m^2); Estimated GFR (Non-African Ame >60 (>=60 mL/min/1.73m^2); Globulin 3.9 g/dL; Glucose 98 mg/dL (74-106); Sodium 135 mmol/L (136-145); Total Protein 7.7 g/dL (6.4-8.2)
== END 2025-01-20 06:53 | disposition home or self-care (01) ==
LOC: LAB 06:52
PROVIDERS: PCP Family Medicine; Visit Provider Family Medicine
DX: L30.9 Dermatitis, unspecified (principal); F90.9 Attention-deficit hyperactivity disorder, unspecified type; F84.0 Autistic disorder; Z79.899 Other long term (current) drug therapy
CPT/HCPCS: 36415; 80053